=== PATIENT | male | born 1960 | race Caucasian/White ===

== ENCOUNTER → 2017-04-18 | Outpatient (REF) | payer OTHER ==
[2017-04-21 10:08] LABS: BENZODIAZEPINES, URINE SCREEN Negative ng/mL (Cutoff=200); METHADONE, URINE SCREEN Negative ng/mL (Cutoff=300); pH, URINE 5.5 (4.5-8.9)
== END ==
LOC: M SFHCLACO 11:49
PROVIDERS: ATTEND Physician Assistant
DX: F11.90 Opioid use, unspecified, uncomplicated (principal)

== ENCOUNTER → 2017-07-25 | Outpatient (REF) | payer OTHER ==
[2017-07-27 00:06] LABS: Lyme Disease IgG/IgM Antibodie <0.91 ISR (0.00-0.90); Lyme Disease IgM Ab Quantitati <0.80 index (0.00-0.79)
== END ==
LOC: M SFHCADAM 10:33
PROVIDERS: ATTEND Family Medicine
DX: M25.50 Pain in unspecified joint (principal)

== ENCOUNTER → 2017-10-16 | Outpatient (CLI) | payer OTHER ==
--- NOTE | 2017-11-07 00:14 | ECWPNPC ---
PATIENT NAME: SANTIAGO LEAHY : 1960 GENDER: MALE VISIT DATE: 10/16/2017 DISCHARGE DATE: 10/16/17 1533 VISIT LOCKED DATE TIME: PHYSICIAN: OPAL DAI RESOURCE: OPAL DAI REASON FOR APPOINTMENT 1. LOW BACK PAIN HISTORY OF PRESENT ILLNESS FALL RISK SCREENING: SCREENING :NO FALLS IN THE PAST YEAR 57 YEAR OLD MALE PATIENT WITH HISTORY OF CHRONIC BACK PAIN. PATIENT DESCRIBES THE PAIN ACHING, BURNING, THROBBING, SHARP, STABBING, AND HAVING IT ALL THE TIME WITH A PAIN SCORE OF 8/10. PATIENT STATES THAT HIS PAIN STARTED ROUGHLY TWO AND HALF AGREES AGO AFTER HE HAD A FLARE UP FROM HIS CROHN'S DISEASE. PATIENT STATES THAT ANY TYPE OF ACTIVITY INCLUDING SITTING, STANDING, OR LAYING DOWN FOR ANY PERIOD OF TIME INCREASES THE PAIN IN THE PATIENT'S LOWER BACK. PATIENT DID HAVE TWO BACK SURGERIES IN 1989 AND 1991 AND STATES THAT THEY DID AID IN PAIN RELIEF UNTIL THE FLARE UP. PATIENT REPORTS TRYING NERVE BLOCKS MANY YEARS AGO THAT DID NOT AID IN RELIEF. CURRENTLY THE PATIENT IS USING OXYCODONE FOR THE PAIN RELIEF. PATIENT DENIES UNEXPLAINABLE WEIGHT LOSS, FEVER, CHILLS, NEW CHANGES ON HIS URINARY OR BOWEL CONTROL. PAIN SCREENING: PATIENT HAS A COMPLAINT OF ACUTE OR CHRONIC PAIN :YES CURRENT MEDICATIONS TAKING MULTIVITAMIN TAKING FISH OIL TAKING OXYCODONE HCL 5 MG TABLET 1 TABLET ORALLY TID (TAKE WITH PREVIOUS RX FOR MDD 3) TAKING HUMIRA EVER OTHER WEEK, DONE IN [place] NOT-TAKING ZYRTEC ALLERGY 10 MG TABLET 1 TABLET ORALLY ONCE A DAY NOT-TAKING TRAMADOL HCL 50 MG TABLET 1 TABLET NEEDED MDD 2 ORALLY EVERY 6 HRS NOT-TAKING AUGMENTIN 500-125 MG TABLET 1 TABLET ORALLY THREE TIMES DAILY NOT-TAKING HYDROXYZINE HCL 25 MG TABLET 1 TABLET NEEDED ORALLY QHS NOT-TAKING HEPATITIS A-HEP B RECOMB VAC 720-20 ELU-MCG/ML SUSPENSION BRING TO OFFICE FOR INJECTION BY NURSE INTRAMUSCULAR ONCE, REPEAT IN 1 MONTH AND THEN 5 MONTHS AFTER THAT MEDICATION LIST REVIEWED AND RECONCILED WITH THE PATIENT PAST MEDICAL HISTORY CROHN'S DISEASE CHRONIC LOW BACK PAIN SMOKER ALLERGIES SULFA (FOR ALLERGY USE ONLY): SWELLING IN EXTREMITIES: ALLERGY SURGICAL HISTORY RESECTION OF 8-10" OF SMALL INTESTINE PLUS ILEUM AND PART OF COLON DUE TO CROHN'S DISEASE 2009 AFTER INJURY -- LAMINECTOMY AND REMOVAL OF BONE FRAGMENTS, PER PATIENT 1991 LAMINECTOMY (LUMBAR) 1989 RECONSTRUCTION OF LEFT ELBOW 1981 REPAIR OF RUPTURED ACHILLES TENDON 1969' REPAIR OF EARS TO REVERSE HEARING LOSS 17 Y/O FAMILY HISTORY FATHER: 90 YRS, HEART ATTACK, STROKE, CANCER, DIAGNOSED WITH HEART DISEASE, STROKE MOTHER: 80 YRS, HEART ATTACK, DIABETES, CANCER, DIAGNOSED WITH DIABETES, HEART DISEASE 1 BROTHER(S) , 3 SISTER(S) . 6 SON(S) , 2 DAUGHTER(S) - HEALTHY. 1 SISTER WITH COPD, DM. SOCIAL HISTORY GENERAL: TOBACCO USE ARE YOU A:CURRENT SMOKER ARE YOU INTERESTED IN QUITTING?READY TO QUIT PREVIOUS QUIT ATTEMPTS?YES, WITHIN THE LAST 6 MONTHS. COUNSELED THE PATIENT ON TOBACCO USE, CESSATION [id number]/22/2017 HOW MANY CIGARETTES A DAY DO YOU SMOKE?6-10 HOW SOON AFTER YOU WAKE UP DO YOU SMOKE YOUR FIRST CIGARETTE?6-30 MIN HOW OFTEN DO YOU SMOKE CIGARETTES?EVERY DAY PATIENT COUNSELED ON THE DANGERS OF TOBACCO USE AND URGED TO QUIT:10/16/2017 SMOKING CESSATION INFORMATION GIVEN10/16/2017 DECLINED ARRANGEADVISED TO CALL [facility] TO[facility]AC[facility] CESSATION WORKING ON QUITTING THROUGH PRIMARY ASSIST (PHARMACOTHERAPY AND COUNSELING)DISCUSSED PATIENT CONCERNS RELATED TO QUITTING. ADDITIONAL FINDINGS: TOBACCO USERMODERATE CIGARETTE SMOKER (10-19 CIGS/DAY) VAPORNO E-CIGARETTENO LUNG CANCER SCREENING SMOKING STATUS:CURRENT SMOKER IS THE PATIENT BETWEEN THE AGE OF 56 AND 78?YES HAS THE PATIENT EVER BEEN DIAGNOSED WITH LUNG CANCER?NO PACK YEARS = NUMBER OF PACKS PER DAY SMOKED X NUMBER OF YEARS SMOKED:44 BMI CARE GOAL FOLLOW-UP BELOW NORMAL BMI FOLLOW-UPDIETARY EDUCATION FOR WEIGHT GAIN - AT GOAL ALCOHOL SCREENING DID YOU HAVE A DRINK CONTAINING ALCOHOL IN THE PAST YEAR?YES HOW OFTEN DID YOU HAVE A DRINK CONTAINING ALCOHOL IN THE PAST YEAR?FOUR OR MORE TIMES A WEEK (4 POINTS) HOW MANY DRINKS DID YOU HAVE ON A TYPICAL DAY WHEN YOU WERE DRINKING IN THE PAST YEAR?1 OR 2 (0 POINTS) HOW OFTEN DID YOU HAVE SIX OR MORE DRINKS ON ONE OCCASION IN THE PAST YEAR?NEVER (0 POINTS) POINTS4 INTERPRETATIONPOSITIVE RECREATIONAL DRUG USE DRUG USE?NO CAFFEINE CAFFEINE USE?YES HOW OFTEN AND HOW MUCH? 3 CUPS OF COFFEE A DAY SEXUAL HX HAD SEX IN THE LAST 12 MONTHS (VAGINAL, ORAL, OR ANAL)?YES HAVE YOU EVER HAD AN STD?NO WITHWOMEN ONLY USE PROTECTION?NO HIV / HEP-C SCREENING HIV TEST OFFERED TO PATIENT:YES DATE OFFERED:12/04/2016 TEST ACCEPTED:NO REASON:PATIENT DECLINED HEP-C TEST OFFERED TO PATIENT:YES DATE OFFERED:12/04/2016 TEST ACCEPTED:NO REASON:PATIENT DECLINED OCCUPATION: [employer]. DIET: REGULAR, HEALTHY WITH FRUITS AND VEGETABLES. EXERCISE: NO REGULAR EXERCISE. MARITAL STATUS: SINGLE. OTHERS AT HOME: NONE. PETS: NONE. EPISCOPALIAN NO ZOROASTRIAN BELIEFS THAT WOULD IMPACT HEALTH CARE. LANGUAGE CITIZEN OF [place]. EDUCATION HS. 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 NO TRAVEL OUTSIDE US. DOMESTIC VIOLENCE NONE. HOSPITALIZATION/MAJOR DIAGNOSTIC PROCEDURE SURGERIES ABOVE CROHN'S DISEASE REVIEW OF SYSTEMS REVIEWED BY: PROVIDER: OPAL DAI MD . CONSTITUTIONAL: ANY CHANGE IN YOUR MEDICAL CONDITION? YES RECENT EXACERBATION OF CROHN'S DISEASE . CHILLS NO . FEVER NO . INFECTION: DO YOU HAVE NEW INFECTIONS? NO . DO YOU HAVE HISTORY OF MRSA? NO . MUSCULOSKELETAL: ANY NEW PATTERNS OF PAIN OR NUMBNESS? NO . SYTEMIC LUPUS NO . GASTROENTEROLOGY: ANY NEW CHANGE IN BOWEL CONTROL? NO . BARRETTS ESOPHAGUS NO . CIRRHOSIS NO . HEPATITIS NO . LIVER FAILURE NO . ACID REFLUX NO . UNEXPLAINED WEIGHT LOSS NO . GENITOURINARY: ANY NEW CHANGE IN BLADDER CONTROL? NO . IS THERE A CHANCE YOU COULD BE ? NO . HEMATOLOGY/LYMPH: DO YOU TAKE ANY BLOOD THINNERS? (FOR EXAMPLE- COUMADIN, PLAVIX, AGGRENOX, PLATEL, PRADAXA, OR XARELTO) NO . WHEN WAS YOUR LAST DOSE? DATE: TIME: . LOW PLATELET COUNT NO . SICKLE CELL DISEASE NO . VON WILLIEBRANDS NO . FACTOR V LEIDEN NO . THALLASEMIA NO . ANEMIA NO . EASY BRUISING NO . NEUROLOGY: HAVE YOU FALLEN IN THE PAST 6 MONTHS? YES PT REPORTS HE HAS NEUROPATHY IN BOTH FEET/LEGS, SOMETIMES WILL STUMBLE AND FALL, DENIES ANY INJURIES FROM FALLS. . ANY NEW EXTREMITY NUMBNESS OR WEAKNESS? NO . HEAD INJURY NO . DEMENTIA NO . CEREBRAL PALSY NO . MULTIPLE SCLEROSIS NO . DIZZINESS NO . HEADACHE NO . STROKES NO . VERTIGO NO . CARDIOLOGY: DO YOU HAVE A PACEMAKER OR DEFIBRILLATOR? NO . ANGINA NO . HEART ATTACK NO . HEART SURGERY NO . CONGESTIVE HEART FAILURE/FLUID OVERLOAD NO . CHEST PAIN NO . HIGH BLOOD PRESSURE NO . IRREGULAR HEART BEAT NO . RESPIRATORY: HAVE YOU BEEN SICK IN THE PAST WEEK? YES PT REPORTS HE IS HAVING AN EXACERBATION OF HIS CROHN'S DISEASE THIS WEEK . FEVER NO . FLU LIKE SYMPTOMS? NO . CPAP NO . BYPAP NO . ASTHMA NO . EMPHYSEMA NO . CHRONIC LUNG DISEASES NO . SHORTNESS OF BREATH ON EXERTION NO . COUGH NO . SNORING NO . INTEGUMENTARY: DO YOU HAVE ANY RASHES OR OPEN SORES? NO . ALLERGIC/IMMUNO: ARE YOU ALLERGIC TO SHELLFISH OR IV DYE? NO . ANY NEW ALLERGIES? NO . PSYCHIATRIC: DO YOU HAVE THOUGHTS OF HURTING YOURSELF OR SOMEONE ELSE? NO . ARE YOU ABUSED, NEGLECTED, OR IN AN UNSAFE ENVIRONMENT? NO . ENDOCRINOLOGY: ARE YOU DIABETIC? NO . THYROID DISORDER NO . OTHER: DO YOU NEED ANY PRESCRIPTIONS? YES . IF YES, PLEASE LIST: ____OXYCODONE 5MG, STATES PRIMARY WOULD LIKE PAIN MANAGEMENT TO TAKE OVER PRESCRIBING PAIN MEDICATION. . ANY NEW PROBLEMS WITH YOUR MEDICATIONS? NO . WHEN DID YOU LAST EAT? ____ . WHEN DID YOU LAST DRINK? ____ . WHAT DID YOU LAST DRINK? ____ . NAME OF PERSON DRIVING YOU HOME? ____ . DO YOU HAVE ANY OTHER QUESTIONS OR CONCERNS NO . VITAL SIGNS WT 150 LBS, HT 68.5 IN, BMI 22.47 INDEX, BP 138/76 MM HG, HR 76 /MIN, RR 18 /MIN, TEMP 98.5 F, OXYGEN SAT % 96%, NA INITIALS AW 1338. EXAMINATION : PATIENT IS ALERT O X 3 AND COOPERATIVE. TENDERNESS IN THE LOWER BACK AND PARASPINAL MUSCLE GROUP. ANTALGIC GAIT. LIMPING FROM THE LEG. PATIENT ABLE TO FLEX 40 DEGREES AND UNABLE TO EXTEND DUE TO PAIN. BOTH LEGS POSITIVE FOR PAIN AT STRAIGHT LEG RAISES. BOTH LEGS ARE WEAK. DIFFICULTIES GETTING TO THE SITTING POSITION. MRI OF HE LUMBAR SPINE DONE ON 08/02/16 SHOWS A DISC BULGE AT L3-L4 THROUGH L5-S1 WITH FACET DEGENERATIVE CHANGES. TENDERNESS IN THE CERVICAL AREA AND PARASPINAL MUSCLE GROUP. PATIENT ABLE TO FLEX THE NEXT 4- DEGREES AND 15 DEGREES LEFT AND RIGHT WITH LATERAL ROTATION. UPPER EXTREMEITIES VERY WEAK. LUNGS CLEAR, TO AUSCULTATION. NO MURMURS OR GALLOPS; FACIAL CRANIAL NERVES ARE GROSSLY NORMAL. GOOD SYMMETRY OF FACIAL MUSCLE MOVEMENT. NORMAL VISUAL SIGALA. ABDOMINAL SOFT AND DEPRESSIBLE. ASSESSMENTS POSTLAMINECTOMY SYNDROME, NOT ELSEWHERE CLASSIFIED - M96.1 (PRIMARY) CERVICALGIA - M54.2 INTERVERTEBRAL DISC DISORDER WITH RADICULOPATHY OF LUMBAR REGION - M51.16 MYALGIA - M79.1 TREATMENT POSTLAMINECTOMY SYNDROME, NOT ELSEWHERE CLASSIFIED NOTES: WE DISCUSSED SEVERAL ISSUES WITH MR. LEAHY'S PAIN MANAGEMENT CASE. AT THIS TIME THE PATIENT WILL CONTINUE WITH THE SAME MEDICATION REGIME BEFORE. DUE TO THE SEVERE PAIN THROUGHOUT THE BACK I WOULD LIKE THE PATIENT TO SEE A VOCATIONAL EVALUATOR. PATIENT WILL ALSO RECEIVE A CERVICAL X-RAY SO I MAY BETTER ASSESS THE PATIENT AND WHETHER PAIN IS LOCATED I WOULD LIKE TO SPEAK WITH THE PATIENT'S PRIMARY CARE TO DISCUSS MEDICATION MANAGEMENT. PATIENT IS AWARE WE WILL NOT PRESCRIBE MEDICATIONS UNTIL WE HAVE SPOKEN WITH HIS PRIMARY CARE. I WOULD ALSO LIKE THE PATIENT TO START PHYSICAL THERAPY TO SEE IF IT WILL AID IN RANGE OF MOTION WELL FUNCTIONALITY AND MOBILITY. INSTRUCTIONS WERE GIVEN, QUESTIONS WERE ANSWERED, PATIENT REPORTS UNDERSTANDING AND AGREES WITH THE PLAN. I, BARBRA GIPSON, DOCUMENTED THE ABOVE INFORMATION ACTING A SCRIBE FOR DR. DAI. I HAVE REVIEWED THE ABOVE DOCUMENT, WRITTEN BY BARBRA ARMENTA AND I VERIFY THAT IT IS ACCURATE. DEAR DR. ROSS:THANK YOU FOR YOUR KIND REFERRAL OF MR. LEAHY. IF YOU WANT TO DISCUSS HIS CASE WITH ME PLEASE CALL ME AT THE PAIN CENTER AT [phone]. SINCERELY,OPAL DAI, [facility]. PROCEDURE CODES FA211 ESTABILISHED PATIENT [facility] CHARGE G8427 DOC MEDS VERIFIED W/PT OR RE G8730 PAIN ASSESS POS TOOL F/U PLAN DOC DISPOSITION & COMMUNICATION FOLLOW UP 2 WEEKS ELECTRONICALLY SIGNED BY OPAL DAI MD ON 11/05/2017 AT 08:58 PM EST DISCLAIMER : THIS IS A VISIT SUMMARY EXTRACTED FROM THE [employer] CHART. IT IS NOT A COPY OF THE [employer] PROGRESS NOTE. MTDD
== END ==
LOC: M PAIN 13:00
PROVIDERS: ATTEND Anesthesiology
DX: M96.1 Postlaminectomy syndrome, not elsewhere classified (principal); M54.2 Cervicalgia; M51.16 Intervertebral disc disorders with radiculopathy, lumbar region; M79.1 Myalgia; M54.5 Low back pain; G89.29 Other chronic pain; K50.90 Crohn's disease, unspecified, without complications; F17.210 Nicotine dependence, cigarettes, uncomplicated; Z79.891 Long term (current) use of opiate analgesic; Z79.899 Other long term (current) drug therapy; Z88.2 Allergy status to sulfonamides

== ENCOUNTER → 2018-09-10 | Outpatient (REF) | payer OTHER ==
[2018-09-10 20:46] LABS: HEMATOCRIT 49.1 % (42.0-52.0); HEMOGLOBIN 16.2 g/dl (13.5-17.5); MEAN CORPUSCULAR HEMOGLOBIN 31.3 pg (27.0-33.0); PLATELET COUNT, AUTOMATED 193 10^3/uL (150-450); RED BLOOD COUNT 5.17 10^6/uL (4.30-6.10); RED CELL DISTRIBUTION WIDTH 13.6 % (11.5-14.5); WHITE BLOOD COUNT 17.3 10^3/uL (4.0-10.0)
[2018-09-10 21:06] LABS: ALBUMIN 3.6 GM/DL (3.2-5.2); ALBUMIN/GLOBULIN RATIO 1.29 (1.00-1.93); ALKALINE PHOSPHATASE 75 U/L (45-117); ALT/SGPT 40 U/L (12-78); ANION GAP 7 MEQ/L (8-16); AST/SGOT 16 U/L (7-37); BILIRUBIN,TOTAL 0.3 MG/DL (0.2-1.0); BLOOD UREA NITROGEN 30 MG/DL (7-18); C REACTIVE PROTEIN QUANTITATIV < 0.30 MG/DL (0.00-0.30); CALCIUM LEVEL 8.9 MG/DL (8.5-10.1); CARBON DIOXIDE LEVEL 26 MEQ/L (21-32); CHLORIDE LEVEL 107 MEQ/L (98-107); CREATININE FOR GFR 0.99 MG/DL (0.70-1.30); FERRITIN 97 NG/ML (26-388); GLOMERULAR FILTRATION RATE > 60.0 (>56); GLUCOSE, FASTING 86 MG/DL (70-100); IRON (FE) 105 UG/DL (65-175); PERCENT SATURATION 32.3 % (19.7-50.0); POTASSIUM SERUM 4.6 MEQ/L (3.5-5.1); SODIUM LEVEL 140 MEQ/L (136-145); TOTAL 25(OH) VITAMIN D 34.5 NG/ML (30.0-100.0); TOTAL IRON BINDING CAPACITY 325 UG/DL (250-450); TOTAL PROTEIN 6.4 GM/DL (6.4-8.2)
[2018-09-10 21:16] LABS: ERYTHROCYTE SEDIMENTATION RATE 3 mm/hr (0-20)
[2018-09-17 00:11] LABS: ADALIMUMAB LEVEL 2.6 ug/mL (.); ANTI-ADALIMUMAB ABY <25 ng/mL (.)
== END ==
LOC: M LABDRWAD 20:31
DX: K50.10 Crohn's disease of large intestine without complications (principal); K50.00 Crohn's disease of small intestine without complications; K62.89 Other specified diseases of anus and rectum; F11.20 Opioid dependence, uncomplicated; F17.200 Nicotine dependence, unspecified, uncomplicated
CPT/HCPCS: 83550

== ENCOUNTER → 2018-09-10 | Outpatient (REF) | payer OTHER ==
[2018-09-10 20:26] LABS: BASO % 0.2 % (0.0-1.0); EOS % 0.1 % (0.0-3.0); HEMATOCRIT 47.6 % (42.0-52.0); HEMOGLOBIN 15.3 g/dl (13.5-17.5); IMMATURE GRANULOCYTE % 0.5 % (0-3.0); LYMPH % 5.9 % (24.0-44.0); MEAN CORPUSCULAR HEMOGLOBIN 31.1 pg (27.0-33.0); MEAN CORPUSCULAR HGB CONC 32.1 g/dl (32.0-36.5); MEAN CORPUSCULAR VOLUME 96.7 fl (80.0-96.0); MONO # 0.4 10^3/uL (0.0-0.8); MONO % 2.4 % (0.0-5.0); NEUTROPHILS # 15.7 10^3/uL (1.8-7.7); NEUTROPHILS % 90.9 % (36.0-66.0); PLATELET COUNT, AUTOMATED 210 10^3/uL (150-450); RED BLOOD COUNT 4.92 10^6/uL (4.30-6.10); RED CELL DISTRIBUTION WIDTH 13.6 % (11.5-14.5); WHITE BLOOD COUNT 17.3 10^3/uL (4.0-10.0)
[2018-09-10 21:06] LABS: ALBUMIN 3.7 GM/DL (3.2-5.2); ALBUMIN/GLOBULIN RATIO 1.28 (1.00-1.93); ALKALINE PHOSPHATASE 78 U/L (45-117); ALT/SGPT 38 U/L (12-78); ANION GAP 8 MEQ/L (8-16); AST/SGOT 17 U/L (7-37); BILIRUBIN,TOTAL 0.3 MG/DL (0.2-1.0); BLOOD UREA NITROGEN 29 MG/DL (7-18); CARBON DIOXIDE LEVEL 26 MEQ/L (21-32); CHLORIDE LEVEL 107 MEQ/L (98-107); CREATININE FOR GFR 0.97 MG/DL (0.70-1.30); GLOMERULAR FILTRATION RATE > 60.0 (>56); GLUCOSE, FASTING 88 MG/DL (70-100); POTASSIUM SERUM 4.6 MEQ/L (3.5-5.1); SODIUM LEVEL 141 MEQ/L (136-145); THYROID STIMULATING HORMONE 0.637 uIU/ML (0.358-3.740); TOTAL PROTEIN 6.6 GM/DL (6.4-8.2)
== END ==
LOC: M SFHCADAM 16:03
DX: R53.81 Other malaise (principal)
CPT/HCPCS: 84443

== ENCOUNTER → 2018-11-12 | Outpatient (CLI) | payer OTHER ==
--- NOTE | 2018-11-12 19:24 | REP ---
Clinical: Neck mass. Technique: AP and lateral soft tissue neck radiographs. Findings: Osseous structures demonstrate advanced multilevel degenerative disc osteophyte complexes. The airway is patent and normal / midline. The surrounding soft tissues are grossly unremarkable. There is a 1 cm calcification in the right submandibular region. Impression: 1. Advanced multilevel degenerative changes. 2. 1 cm calcification in the soft tissues of the right submandibular region. Electronically Signed by Gaurang Jain MD 11/12/2018 07:16 P
== END ==
LOC: M ADAMS 08:51
PROVIDERS: ATTEND Family Medicine
DX: R22.1 Localized swelling, mass and lump, neck (principal)

== ENCOUNTER → 2019-03-09 | Outpatient (REF) | payer OTHER ==
[2019-03-09 21:06] LABS: ALBUMIN 3.5 GM/DL (3.2-5.2); ALT/SGPT 31 U/L (12-78); BILIRUBIN,TOTAL 0.3 MG/DL (0.2-1.0); BLOOD UREA NITROGEN 26 MG/DL (7-18); CALCIUM LEVEL 9.1 MG/DL (8.5-10.1); CARBON DIOXIDE LEVEL 26 MEQ/L (21-32); CHLORIDE LEVEL 109 MEQ/L (98-107); CREATININE FOR GFR 0.87 MG/DL (0.70-1.30); FREE T4 0.97 NG/DL (0.76-1.46); GLOMERULAR FILTRATION RATE > 60.0 (>56); GLUCOSE, FASTING 118 MG/DL (70-100); POTASSIUM SERUM 4.3 MEQ/L (3.5-5.1); SODIUM LEVEL 141 MEQ/L (136-145); THYROID STIMULATING HORMONE 0.672 uIU/ML (0.358-3.740); TOTAL PROTEIN 6.5 GM/DL (6.4-8.2)
== END ==
LOC: M SFHCADAM 17:32
PROVIDERS: ATTEND Family Medicine
DX: R22.0 Localized swelling, mass and lump, head (principal); F32.9 Major depressive disorder, single episode, unspecified

== ENCOUNTER → 2019-03-09 | Outpatient (CLI) | payer OTHER ==
[2019-03-09 20:37] LABS: HEMATOCRIT 47.5 % (42.0-52.0); HEMOGLOBIN 15.5 g/dl (13.5-17.5); MEAN CORPUSCULAR HEMOGLOBIN 30.9 pg (27.0-33.0); MEAN CORPUSCULAR HGB CONC 32.6 g/dl (32.0-36.5); MEAN CORPUSCULAR VOLUME 94.6 fl (80.0-96.0); PLATELET COUNT, AUTOMATED 253 10^3/uL (150-450); RED BLOOD COUNT 5.02 10^6/uL (4.30-6.10); WHITE BLOOD COUNT 11.6 10^3/uL (4.0-10.0)
[2019-03-09 20:56] LABS: ALBUMIN 3.5 GM/DL (3.2-5.2); ALT/SGPT 32 U/L (12-78); BILIRUBIN,DIRECT < 0.1 MG/DL (0.0-0.2); BILIRUBIN,TOTAL 0.3 MG/DL (0.2-1.0); BLOOD UREA NITROGEN 27 MG/DL (7-18); C REACTIVE PROTEIN QUANTITATIV 0.39 MG/DL (0.00-0.30); CALCIUM LEVEL 9.2 MG/DL (8.5-10.1); CARBON DIOXIDE LEVEL 25 MEQ/L (21-32); CHLORIDE LEVEL 109 MEQ/L (98-107); CREATININE FOR GFR 0.85 MG/DL (0.70-1.30); GLOMERULAR FILTRATION RATE > 60.0 (>56); GLUCOSE, FASTING 120 MG/DL (70-100); POTASSIUM SERUM 4.3 MEQ/L (3.5-5.1); SODIUM LEVEL 141 MEQ/L (136-145); TOTAL PROTEIN 6.3 GM/DL (6.4-8.2)
[2019-03-09 21:12] LABS: ERYTHROCYTE SEDIMENTATION RATE 5 mm/hr (0-20)
== END ==
LOC: M LABDRWAD 17:37
PROVIDERS: ATTEND Physician Assistant Surgical
DX: K50.00 Crohn's disease of small intestine without complications (principal); K50.10 Crohn's disease of large intestine without complications; F17.200 Nicotine dependence, unspecified, uncomplicated; K92.1 Melena

== ENCOUNTER 2019-12-03 17:15 | Inpatient (IN) | payer OTHER ==
[~2019-12-03] VITALS: Ht 175.3 cm; Wt 54.1 kg
[2019-12-03] MEDS ORDERED: LR10IV IV (17:40)
[2019-12-03] MEDS ORDERED: TPNINJ3 IV (17:40)
[2019-12-03] MEDS ORDERED: ANTI2TAB16 (17:40)
[2019-12-03] MEDS ORDERED: PRED10TA2 (17:40)
[2019-12-03] MEDS ORDERED: OXYC5SOL11 (17:40)
[2019-12-03] MEDS ORDERED: NS 1,000 ML IV ONE ×3 (18:00→20:45)
[2019-12-03 18:31] LABS: VENOUS BASE EXCESS 7.6 (-2.0-2.0); VENOUS HCO3 31.5 MEQ/L (23.0-27.0); VENOUS O2 SATURATION 93.8 % (60.0-80.0); VENOUS PARTIAL PRESSURE CO2 41.3 mmHg (38.0-50.0); VENOUS PARTIAL PRESSURE O2 65.2 mmHg (30.0-50.0); VENOUS STANDARD HCO3 31.4 MEQ/L; VENOUS TOTAL CO2 32.8 MEQ/L (24.0-28.0)
--- NOTE | 2019-12-03 18:31 | REP ---
Portable chest x-ray: Two views. History: Dyspnea. Cough. No comparison views. Findings: A left-sided PICC line is seen in place with its tip in the expected location of the SVC. The lungs are well inflated and clear. The pleural angles are sharp. Heart is not enlarged. No infiltrate is seen. Pulmonary vasculature is not increased. There are several old healed rib fractures on the left. Impression: No active disease. Electronically Signed by Oscar Sumner MD 12/03/2019 06:22 P
[2019-12-03 18:34] LABS: HEMATOCRIT 34.5 % (42.0-52.0); HEMOGLOBIN 11.4 g/dl (13.5-17.5); MEAN CORPUSCULAR HEMOGLOBIN 31.6 pg (27.0-33.0); MEAN CORPUSCULAR VOLUME 95.6 fl (80.0-96.0); RED BLOOD COUNT 3.61 10^6/uL (4.30-6.10); WHITE BLOOD COUNT 8.1 10^3/uL (4.0-10.0)
[2019-12-03 18:44] LABS: INR 0.96; PROTHROMBIN TIME 12.5 SECONDS (11.8-14.0)
[2019-12-03 19:05] LABS: PLATELET COUNT, AUTOMATED 68 10^3/uL (150-450)
[2019-12-03 19:12] LABS: ALBUMIN 2.4 GM/DL (3.2-5.2); ALT/SGPT 148 U/L (12-78); BILIRUBIN,DIRECT 2.5 MG/DL (0.0-0.2); BILIRUBIN,TOTAL 3.9 MG/DL (0.2-1.0); BLOOD UREA NITROGEN 38 MG/DL (7-18); CARBON DIOXIDE LEVEL 32 MEQ/L (21-32); CHLORIDE LEVEL 96 MEQ/L (98-107); CK-MB VALUE MASS < 1.0 NG/ML (<3.6); CPK CREATINE PHOSPHOKINASE 54 U/L (39-308); CREATININE FOR GFR 0.99 MG/DL (0.70-1.30); GLOMERULAR FILTRATION RATE > 60.0 (>56); GLUCOSE, FASTING 121 MG/DL (70-100); MB/CK RELATIVE INDEX 1.85 (< OR =4); NT-PRO BNP 86 PG/ML (<125); POTASSIUM SERUM 3.9 MEQ/L (3.5-5.1); SODIUM LEVEL 136 MEQ/L (136-145); THYROID STIMULATING HORMONE 0.119 uIU/ML (0.358-3.740); TOTAL PROTEIN 5.7 GM/DL (6.4-8.2); TROPONIN I < 0.02 NG/ML (< 0.10)
[2019-12-03 19:15] LABS: BASOPHILS 1 % (0-1); LYMPHOCYTES 4 % (16-44); MONOCYTES 3 % (0-5); NEUTROPHILS 84 % (28-66); PLATELET ESTIMATE DECREASED (NORMAL)
--- NOTE | 2019-12-03 19:40 | ECGEPIP ---
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
[2019-12-03] MEDS ORDERED: ONDANSETRON 4MG/2ML VIAL (J2405) IV ONE (20:15)
[2019-12-03] MEDS ORDERED: ISOVUE-370 76% 100ML VIAL (Q9967) As Ordered ONE (20:49)
--- NOTE | 2019-12-03 21:52 | REPVR ---
PROCEDURE INFORMATION: Exam: CT Abdomen And Pelvis With Contrast Exam date and time: 12/03/2019 9:09 PM Age: 59 years old Clinical indication: Abdominal pain; Generalized TECHNIQUE: Imaging protocol: Computed tomography of the abdomen and pelvis with intravenous contrast. Radiation optimization: All CT scans at this facility use at least one of these dose optimization techniques: automated exposure control; mA and/or kV adjustment per patient size (includes targeted exams where dose is matched to clinical indication); or iterative reconstruction. Contrast material: ISOVUE 370; Contrast volume: 100 ml; Contrast route: IV; COMPARISON: No relevant prior studies available. FINDINGS: Lungs: Bibasilar atelectasis. Liver: Prominent hepatic arteries with peripheral corkscrewing, findings which can be associated with cirrhosis. Subcentimeter hypodensity in the left lobe of the liver not characterized on this examination. Gallbladder and bile ducts: The gallbladder is incompletely distended. This is most likely related to incomplete fasting. Clinical correlation to exclude gallbladder pathology suggested. Dilated mid common bile duct measures 14 mm tapering at the ampullary. There is no significant intrahepatic biliary dilatation. Findings should be correlated with biliary chemistries. Pancreas: Normal. No ductal dilation. Spleen: Borderline splenomegaly. Mottled enhancement likely related to phase of enhancement. Adrenals: There is bilateral adrenal hyperplasia. Kidneys and ureters: Normal. No hydronephrosis. Stomach and bowel: Status post right hemicolectomy. Right-sided ostomy demonstrated. Boggy appearance of the distal transverse and left colon may indicate the presence of colitis. Appendix: No evidence of appendicitis. Intraperitoneal space: Unremarkable. No free air. No significant fluid collection. Vasculature: The aorta demonstrates mild atherosclerotic calcification. Lymph nodes: Unremarkable. No enlarged lymph nodes. Bladder: Unremarkable as visualized. Reproductive: The prostate gland demonstrates moderate hyperplasia. Bones/joints: Moderate central spinal stenosis at L2-L3, L3-L4, severe central spinal stenosis at L4-L5. Possible right posterior disc protrusion at L5-S1 which may impinge on the right S1 nerve root although further evaluation with lumbar MRI suggested if clinically indicated. Soft tissues: Unremarkable. IMPRESSION: 1. Moderate central spinal stenosis at L2-L3, L3-L4, severe central spinal stenosis at L4-L5. Possible right posterior disc protrusion at L5-S1 which may impinge on the right S1 nerve root although further evaluation with lumbar MRI suggested if clinically indicated. 2. The gallbladder is incompletely distended. This is most likely related to incomplete fasting. Clinical correlation to exclude gallbladder pathology suggested. 3. Prominent hepatic arteries with peripheral corkscrewing, findings which can be associated with cirrhosis. 4. There is bilateral adrenal hyperplasia. 5. Dilated mid common bile duct measures 14 mm tapering at the ampullary. There is no significant intrahepatic biliary dilatation. Findings should be correlated with biliary chemistries. 6. Boggy appearance of the distal transverse and left colon may indicate the presence of colitis. 7. Moderate prostatic hyperplasia. Electronically signed by: Jesús Doherty On 12/03/2019 21:52:13 PM
--- NOTE | 2019-12-03 21:57 | REPVR ---
PROCEDURE INFORMATION: Exam: CT Angiography Chest With Contrast Exam date and time: 12/03/2019 9:09 PM Age: 59 years old Clinical indication: Shortness of breath; Additional info: Shortness of breath, recent surgery TECHNIQUE: Imaging protocol: Computed tomographic angiography of the chest with intravenous contrast. 3D rendering: MIP and/or 3D reconstructed images were created by the technologist. Radiation optimization: All CT scans at this facility use at least one of these dose optimization techniques: automated exposure control; mA and/or kV adjustment per patient size (includes targeted exams where dose is matched to clinical indication); or iterative reconstruction. Contrast material: ISOVUE 370; Contrast volume: 100 ml; Contrast route: IV; COMPARISON: CR PORTABLE CHEST X-RAY 12/03/2019 5:48 PM FINDINGS: Pulmonary arteries: Normal. No pulmonary emboli. Aorta: There is no aortic dissection or aneurysm. Lungs: Mild paraseptal emphysema most pronounced in the anterior mid and upper lung zones bilaterally with scattered blebs in the lower lobes. Well expanded lungs consistent with COPD. Pleural space: Unremarkable. No pneumothorax. No pleural effusion. Heart: Unremarkable. No cardiomegaly. No pericardial effusion. Lymph nodes: Unremarkable. No enlarged lymph nodes. Bones/joints: Unremarkable. No acute fracture. Soft tissues: Unremarkable. IMPRESSION: 1. Mild paraseptal emphysema most pronounced in the anterior mid and upper lung zones bilaterally with scattered blebs in the lower lobes. 2. There is no aortic dissection or aneurysm. 3. COPD. Electronically signed by: Jesús Doherty On 12/03/2019 21:56:55 PM
[2019-12-03] MEDS ORDERED: PIPERACILLIN/TAZOBACTAM SOD 3.375 GM in D5W MINI-BAG PLUS 50 ML IV ONE (23:45)
[2019-12-04] VITALS (39 sets, daily range): BP systolic 68–110; BP diastolic 40–74
--- NOTE | 2019-12-04 00:50 | HPEPDOC ---
[facility] Medical History & Physical Date of Admission Dec 04, 2019 Date of Service: Dec 04, 2019 Primary Care Physician: NILSA ROSS DO Attending Physician: Ben Smith MD History and Physical TIME OF SERVICE: 2:30 AM CHIEF COMPLAINT: Fever HISTORY OF PRESENT ILLNESS: This is a 59-year-old male who presents with complaints of fevers for 2 days associated with chills and one episode of emesis. He denies having abdominal pain or any change in the output from his stoma. He denies having skin ulcers or any changes in his chronic neck and back pain. He had a fall a few days ago and hit his eye. He thinks this may been due to a combination of low blood pressure due to to dehydration, and his pain meds; initially he had blurry vision in his left eye after the fall, but this has resolved. He admits to losing a lot of weight recently. REVIEW OF SYSTEMS: 12 point review of systems negative except as listed in HPI PAST MEDICAL/ SURGICAL HISTORY: Crohn's disease status post resection of the small intestine ileum and hard of the colon on TPN Status post lumbar laminectomy. Status post reconstruction of left elbow. Status post repair of ruptured Achilles tendon SOCIAL HISTORY: Former smoker. Uses medical marijuana FAMILY HISTORY: CAD Cancer COPD Diabetes ALLERGIES: Please see below. HOME MEDICATIONS: Please see below. PHYSICAL EXAMINATION: VITAL SIGNS: Please see below. GEN: Slim build/ well developed INTEGUMENT: Has multiple tattoos/appears jaundice HEENT: NCAT /mucus membranes dry/ the left eye has marked conjunctival injection CVS: RRR/NMRG/ no lower extremity edema LUNGS: lungs are clear to auscultation bilaterally on room air ABDOMEN: Has a colostomy with green output in the bag MSK/EXTREMITIES: range of motion intact in all 4 extremities NEURO: CN 2-12 are grossly intact / speech is not dysarthric PSYCH: alert and oriented to person place and time/ able to understand and follow all commands LABORATORY DATA: See below. IMAGING: Chest x-ray unremarkable. CT of the chest " IMPRESSION: 1. Mild paraseptal emphysema most pronounced in the anterior mid and upper lung zones bilaterally with scattered blebs in the lower lobes. 2. There is no aortic dissection or aneurysm. 3. COPD. " CT of the abdomen and pelvis " IMPRESSION: 1. Moderate central spinal stenosis at L2-L3, L3-L4, severe central spinal stenosis at L4-L5. Possible right posterior disc protrusion at L5-S1 which may impinge on the right S1 nerve root although further evaluation with lumbar MRI suggested if clinically indicated. 2. The gallbladder is incompletely distended. This is most likely related to incomplete fasting. Clinical correlation to exclude gallbladder pathology suggested. 3. Prominent hepatic arteries with peripheral corkscrewing, findings which can be associated with cirrhosis. 4. There is bilateral adrenal hyperplasia. 5. Dilated mid common bile duct measures 14 mm tapering at the ampullary. There is no significant intrahepatic biliary dilatation. Findings should be correlated with biliary chemistries. 6. Boggy appearance of the distal transverse and left colon may indicate the presence of colitis. 7. Moderate prostatic hyperplasia. MICROBIOLOGY: Please see below. ASSESSMENT: Mr. Aly is a 59-year-old with with a past medical history of Crohn's colitis & multiple back surgeries, who is admitted for evaluation of transaminitis and management of hypotension & acute Crohn's. PLAN: 1. Hypotension Possibly due to infection versus adrenal insufficiency Despite receiving 2 L of IV fluids. The patient's blood pressure remained low CT of abdomen showed bilateral adrenal hyperplasia Plan: Admit to ICU/continue with IV fluids/follow-up cortisol stim test (will not order AM cortisol test bc the AM labs are drawn before 8AM) / he will be started on steroids for Crohn's colitis 2. Transaminitis, possibly due to sclerosing cholangitis Alternatively, he may have ascending cholangitis or another process who's cause is TBD He has a history of Crohn's, which predisposes him to sclerosing cholangitis He is also complaining of fever, chills, has lost weight and has jaundice. His LFTs are elevated. CT of abdomen shows dilated CBD and possible liver cirrhosis Plan: Nothing by mouth/IV fluids/continue Zosyn/GI and Gen Surgery consults / follow-up ERCP 3. Crohn's Colitis He had colon and small bowel resection and is now on TPN CT showed evidence of colitis. Plan: f/u w GI / switch from PO to IV steroids 4. Protein calorie malnutrition. His BMI 17.9. Plan: Follow-up prealbumin/dietitian consult to recalibrate his TPN 5 Chronic lower back pain Plan: Morphine when necessary/per CT recommendations the daytime team may consider MRI of the spine DVT PROPHYLAXIS: SCDs pending confirmation that he does need surgery DISPOSITION: Likely home after more than 2 midnight's stay Vital Signs Vital Signs Date Time Temp Pulse Resp B/P (MAP) Pulse Ox O2 Delivery O2 Flow Rate FiO2 12/04/19 00:09 75 98 12/04/19 00:03 17 96/63 (74) 12/03/19 22:39 97.5 Room Air Laboratory Data Labs 24H Laboratory Tests 2 12/03/19 18:20: Nucleated Red Blood Cells % (auto) 0.0, Neutrophils 84H, Band Neutrophils 8, Lymphocytes (Manual) 4L, Monocytes (Manual) 3, Basophils (Manual) 1, Red Blood Cell Morphology NORMAL, Platelet Estimate DECREASED, Immature Platelet Fraction 5.5, Prothrombin Time 12.5, Prothromb Time International Ratio 0.96, Blood Gas Bicarbonate Standard 31.4, Venous Blood pH 7.500H, Venous Blood Partial Pressure CO2 41.3, Venous Blood Partial Pressure O2 65.2H, Venous Blood Total Carbon Diox jace 32.8H, Venous Blood HCO3 31.5H, Venous Blood Oxygen Saturation 93.8H, Venous Blood Base Excess 7.6H, Anion Gap 8, Glomerular Filtration Rate > 60.0, Lactic Acid Level 1.5, Calcium Level 9.0, Total Bilirubin 3.9H, Direct Bilirubin 2.5H, Aspartate Amino Transf (AST/SGOT) 72H, Alanine Aminotransferase (ALT/SGPT) 148H, Alkaline Phosphatase 162H, Total Creatine Kinase 54, Creatine Kinase MB < 1.0, Creatine Kinase MB Relative Index 1.85, Troponin I < 0.02, ZP-Jfo-O-Type Natriuretic Peptide 86, Total Protein 5.7L, Albumin 2.4L, Albumin/Globulin Ratio 0.73L, Thyroid Stimulating Hormone (TSH) 0.119L 12/03/19 21:50: Urine Color ROSEY, Urine Appearance CLEAR, Urine pH 7.0, Urine Specific [place] 1.021, Urine Protein 2+H, Urine Glucose (UA) NEGATIVE, Urine Ketones NEGATIVE, Urine Blood NEGATIVE, Urine Nitrite NEGATIVE, Urine Bilirubin 1+H, Urine Urobilinogen 2.0H, Urine Leukocyte Esterase NEGATIVE, Urine WBC (Auto) 1, Urine RBC (Auto) 3, Urine Hyaline Casts (Auto) 0, Urine Bacteria (Auto) NEGATIVE, Urine Squamous Epithelial Cells 0, Urine Mucus (Auto) SMALL, Urine Sperm (Auto) CBC/BMP Laboratory Tests 12/03/19 18:20 Microbiology Microbiology 12/03/19 Blood Culture, Received Pending 12/03/19 Respiratory Virus Panel (PCR) ([facility]) - Final, Complete 12/03/19 Blood Culture, Received Pending Home Medications Scheduled Lactated Ringer's (Lactated Ringers) 1,000 Ml Iv.soln, 1,000 ML IV Q6H Prednisone (Prednisone) 10 Mg Tablet, 10 MG PO DAILY Sodium/Pot/Mag/Calc/Chlor/Acet (TPN Electrolytes Vial) 20 Ml Vial, 1 DOSE IV QPM GIVEN AT 1800. RUNS THROUGHOUT THE NIGHT. Scheduled PRN Loperamide HCl (Anti-Diarrheal) 2 Mg Tablet, 2 MG PO QID PRN for DIARRHEA Oxycodone HCl (Oxycodone HCl) 5 Mg/5 Ml Solution, 5 MG PO Q6H PRN for PAIN Allergies Coded Allergies: Sulfa (Sulfonamide Antibiotics) (Verified Allergy, Intermediate, swelling of extremities, 12/03/19) A-FIB/CHADSVASC A-FIB History Current/History of A-Fib/PAF?: No Current PO Anticoag Therapy: No EDOUARD DALE MD Dec 04, 2019 00:50
[2019-12-04] MEDS ORDERED: PRED10TA2 PO (01:14)
[2019-12-04] MEDS ORDERED: TPNINJ3 IV (01:14)
[2019-12-04] MEDS ORDERED: OXYC1SOL3 PO (01:14)
[2019-12-04] MEDS ORDERED: ANTI2TAB16 PO (01:14)
[2019-12-04] MEDS: NS 1,000 ML IV SCH ×2 (01:34→10:19)
[2019-12-04] MEDS: MORPHINE 4 MG/ML 1ML VIAL/SYRINGE (J2270) IV PRN ×3 (03:02→22:12)
[2019-12-04] MEDS ORDERED: COSYNTROPIN 0.25 MG/ML VIAL (J0834 PER 0.25MG) IV ONE (04:15)
[2019-12-04 05:31] LABS: BASO % 0.2 % (0.0-1.0); EOS % 0.4 % (0.0-3.0); HEMATOCRIT 34.2 % (42.0-52.0); HEMOGLOBIN 10.9 g/dl (13.5-17.5); LYMPH # 0.3 10^3/uL (1.5-5.0); LYMPH % 5.9 % (24.0-44.0); MEAN CORPUSCULAR HEMOGLOBIN 31.1 pg (27.0-33.0); MEAN CORPUSCULAR HGB CONC 31.9 g/dl (32.0-36.5); MEAN CORPUSCULAR VOLUME 97.7 fl (80.0-96.0); MONO # 0.5 10^3/uL (0.0-0.8); MONO % 8.7 % (0.0-5.0); NEUTROPHILS # 4.4 10^3/uL (1.5-8.5); NEUTROPHILS % 83.7 % (36.0-66.0); WHITE BLOOD COUNT 5.3 10^3/uL (4.0-10.0)
[2019-12-04 05:36] LABS: PLATELET COUNT, AUTOMATED 64 10^3/uL (150-450)
[2019-12-04 05:48] LABS: ALBUMIN 2.2 GM/DL (3.2-5.2); ALT/SGPT 122 U/L (12-78); BILIRUBIN,DIRECT 2.8 MG/DL (0.0-0.2); BILIRUBIN,TOTAL 3.4 MG/DL (0.2-1.0); BLOOD UREA NITROGEN 34 MG/DL (7-18); CALCIUM LEVEL 8.5 MG/DL (8.5-10.1); CARBON DIOXIDE LEVEL 30 MEQ/L (21-32); CHLORIDE LEVEL 104 MEQ/L (98-107); CREATININE FOR GFR 0.96 MG/DL (0.70-1.30); GLOMERULAR FILTRATION RATE > 60.0 (>56); GLUCOSE, FASTING 75 MG/DL (70-100); POTASSIUM SERUM 3.4 MEQ/L (3.5-5.1); PREALBUMIN 18.4 MG/DL (20.0-40.0); SODIUM LEVEL 140 MEQ/L (136-145)
[2019-12-04] MEDS ORDERED: methylPREDNISolone INJ 125 MG/2 ML VIAL (J2930) IV SCH (06:00)
[2019-12-04] MEDS ORDERED: LIDOCAINE 5% (LIDODERM) PATCH TD PRN (06:30)
[2019-12-04] MEDS ORDERED: ACETAMINOPHEN *IV* 1,000 MG in IV 1 EA IV ONE (06:30)
[2019-12-04] MEDS: PIPERACILLIN/TAZOBACTAM SOD 3.375 GM in D5W MINI-BAG PLUS 50 ML IV SCH ×3 (07:58→23:53)
[2019-12-04] MEDS ORDERED: predniSONE 10 MG TAB PO SCH (09:00)
[2019-12-04] MEDS ORDERED: NS 1,000 ML IV ONE ×2 (10:15→20:45)
[2019-12-04] MEDS ORDERED: HYDROCORTISONE 100 MG/2 ML VIAL (J1720 PER 1) IV ONE (11:30)
--- NOTE | 2019-12-04 12:34 | IPN ---
DATE: 12/04/2019 Jonathan is seen in intensive care unit (ICU). He is waiting for magnetic resonance cholangiopancreatography (MRCP). Admitted with suspected cholangitis. He had shaking chills at home and has elevated liver function test. He did not have an elevated white count but I suspected to have had some pancytopenia, so would approach the absolute level white count with some caution. There has been some discussion about whether the patient has cirrhosis. I do no see any diagnostic except on the CT on admission. His hepatic arteries had some peripheral corkscrewing which can be seen with cirrhosis. However, he underwent a recent laparoscopic procedure at [facility] and had Veronica Ochoa, MS IV diligently went through his operative report and there is no mention of cirrhosis on that. It did say subcentimeter hypodensity right hepatic lobe. So, I think we need to take a diagnosis of cirrhosis with some hesitation as well. His pressures have been soft. Usually systolic pressure is 100-120 and it has been 60-80 in the ICU but it responded to fluid boluses. PHYSICAL EXAM: 99/54, pulse 64, respiratory rate 21, maximum temperature (Tmax) of 101.4. General Appearance: He is lying in bed, resting comfortably. He is jaundiced. Lungs: Clear. Heart: Regular rhythm. Abdomen: Soft, mildly tender. No peripheral edema. LABS: White count is normal, 5.3. Hemoglobin 10.9, platelets 64. Sodium 140, potassium 3.4, BUN 34, creatinine 0.9, glucose 75. Bilirubin is 3.4 with a direct of 2.8. AST, ALT 48 and 122. Alkaline phosphatase 144. Albumin low at 2.2. IMPRESSION: 1. Cholangitis. Rigors and temperature of 101.9. I suspect he has cholangitis. I think of absent of white count might be due to his underlying pancytopenia. Would continue the Zosyn for now pending MRCP. He could have total parenteral nutrition (TPN) related cholestasis but that could not be causing the fever or the rigors. 2. Query adrenal insufficiency. There is some question whether he has renal insufficiency. He was put on Solu-Medrol. This is not a mineral corticoid and will not provide sufficient adrenal replacement. We will stop the methylprednisolone, put him hydrocortisone immediate dose of 100 mg daily and then we will order 60 mg every 12 hours. The case has been discussed with Dr. Porter and his team today. Appreciate the assistance of medical student on this case.
[2019-12-04] MEDS: HYDROCORTISONE 100 MG/2 ML VIAL (J1720 PER 1) IV SCH ×2 (14:00→23:53)
--- NOTE | 2019-12-04 14:20 | REP ---
MRI ABDOMEN WITHOUT CONTRAST: MRCP EXAM. HISTORY: Rule out CBD stone. COMPARISON: CT study, December 03, 2019. TECHNIQUE: T2-weighted axial and coronal scans are acquired. MRCP exam is acquired, and maximum intensity projection images are generated. MRCP FINDINGS: No focal hepatic lesion is seen. No splenic lesion is observed. There is no visible filling defect in the gallbladder. There is no evidence of intrahepatic bile duct dilation. The common bile duct is 6.6 mm in diameter. There is no MRCP evidence to suggest choledocholithiasis. The main pancreatic duct is 2.6 mm in greatest diameter. No mass lesion is observed in the pancreas. There is a right upper quadrant ileostomy. A small left renal cortical cyst is seen. IMPRESSION: Unremarkable MRCP. No evidence of choledocholithiasis. Electronically Signed by Oscar Sumner MD 12/05/2019 05:18 A
[2019-12-04] MEDS ORDERED: propofoL 200 MG/20 ML VIAL As Ordered ONE (14:35)
[2019-12-04] MEDS ORDERED: LIDOCAINE 2% INJ 100 MG/5 ML SDV (FOR ANES.) As Ordered ONE (14:35)
[2019-12-04] MEDS ORDERED: MIDAZOLAM INJ 2 MG/2 ML VIAL (J2250) As Ordered ONE (14:35)
[2019-12-04] MEDS ORDERED: ROCURONIUM BROMIDE 50 MG/5 ML VIAL As Ordered ONE (14:35)
[2019-12-04] MEDS ORDERED: ISOVUE-300 61% 50ML VIAL (Q9967) As Ordered ONE (14:35)
[2019-12-04] MEDS ORDERED: fentaNYL 100 MCG/2 ML INJECTION (J3010) As Ordered ONE (14:35)
[2019-12-04] MEDS: KCL 40MEQ in NS 1000ML 1,000 ML IV SCH ×3 (15:03→21:12)
[2019-12-04] MEDS ORDERED: MIDAZOLAM INJ 2 MG/2 ML VIAL (J2250) IV ONE (17:00)
--- NOTE | 2019-12-04 17:15 | IPN ---
DATE: 12/04/2019 ADDENDUM Extensive conversations with Dr. Bhandari today, ultimately decided not to proceed with endoscopic retrograde cholangiopancreatography (ERCP) as the risk of this outweighed the potential benefit. Consider possibility of line sepsis. I have ordered repeat blood cultures. He had two drawn on admission, I have ordered more. Will continue the Zosyn, IV steroids and IV fluids. Await for results of cultures to come back.
[2019-12-04] MEDS: [UNRECOGNIZED DRUG - OTHER] IV SCH ×2 (18:00→21:19)
--- NOTE | 2019-12-04 20:03 | CR.PDOC ---
General Surgery Consultation Date of Consultation 12/04/19 History and Physical REASON FOR CONSULTATION: Possibility of acute cholangitis HISTORY OF PRESENT ILLNESS: Jonathan is a 59-year-old male with pertinent past medical history of Crohn's disease with multiple bowel resections, who presented to the emergency department with rigors and fever for the last couple days. He had an accompanying episode of vomiting, as well as lower abdominal pain around site of previous incisions. Patient reports that his abdominal pain is unchanged since 09/2019. Patient reports he had an initial bowel resection in 1999, followed by subsequen t resection 2 months ago in September 2019. He states that approximately "60 cm" of bowel have been resected in total. Patient's Crohn's and gastrointestinal care have occurred in [place]. He is currently TPN dependent, 16 hours a day. PAST MEDICAL HISTORY: Crohn's disease status post resection of the small intestine ileum and had of the colon on TPN PAST SURGICAL HISTORY: Initial bowel resection in 1999 with second bowel resection 2 months ago (September 2019) Lumbar laminectomy. Left elbow reconstruction. Ruptured Achilles tendon repair ALLERGIES: Please see below. FAMILY HISTORY: Cancer, unspecified COPD Diabetes Coronary artery disease HOME MEDICATIONS: Please see below. REVIEW OF SYSTEMS: GENERAL: Endorses rigors and fever over the last 2 days CARDIOVASCULAR: Denies chest pain or palpitations PULMONARY: Denies shortness of breath or cough GASTROINTESTINAL: Endorses lower abdominal pain, specifically around former incision sites that has been present and unchanged since September 2019. NUTRITION: TPN dependent PHYSICAL EXAMINATION: VITALS SIGNS: Please see below. GENERAL APPEARANCE: Patient is a thin, somewhat sick appearing male. He is lying flat in bed at time of exam. He appears to be in mild to moderate distress secondary to his constitutional and gastrointestinal symptoms. Awake, alert and oriented 3. Responds appropriately to questions or commands. HEENT: Injected left sclera with what appears to be bruising periorbitally on the left side. LUNGS: Clear to auscultation bilaterally. Patient is breathing on room air. He is speaking in full sentences. HEART: Regular rate and regular rhythm, with normal S1, S2. No murmurs or rubs are appreciated. There is no lower extremity edema. ABDOMEN: Soft and nondistended. There is a high output ostomy present in the right abdomen with colostomy that. There appears to be good granulation tissue of the ostomy EXTREMITIES: No lower extremity edema, clubbing or cyanosis LABORATORY DATA: Please see below. IMPRESSION AND PLAN: We are not convinced that patient is suffering from acute cholangitis. He has a non-elevated white count and does not have right upper quadrant abdominal pain. Other than cholangitis, patient's diagnosis could be a GI virus or related to his TPN. From a general surgery standpoint, we're not planning any surgical intervention at this time. -Patient's TPN can be restarted and his fluids were switched to a rate of 150mL/hour Thank you for the consultation and the privilege to partake in the care of Mr. Aly. We will continue to follow along and should further questions or concerns arise from a general surgery perspective, please feel free to reach out. Vital Signs Vital Signs Date Time Temp Pulse Resp B/P (MAP) Pulse Ox O2 Delivery O2 Flow Rate FiO2 12/04/19 18:00 50 18 94/52 (66) 98 Room Air 12/04/19 16:00 97.1 I&Os I&O- Last 24 Hours up to 6 AM 12/04/19 06:00 Intake Total 3300 ml Output Total 1600 ml Balance 1700 ml Laboratory Data Labs 24H Laboratory Tests 2 12/03/19 21:50: Urine Color ROSEY, Urine Appearance CLEAR, Urine pH 7.0, Urine Specific [place] 1.021, Urine Protein 2+H, Urine Glucose (UA) NEGATIVE, Urine Ketones NEGATIVE, Urine Blood NEGATIVE, Urine Nitrite NEGATIVE, Urine Bilirubin 1+H, Urine Urobilinogen 2.0H, Urine Leukocyte Esterase NEGATIVE, Urine WBC (Auto) 1, Urine RBC (Auto) 3, Urine Hyaline Casts (Auto) 0, Urine Bacteria (Auto) NEGATIVE, Urine Squamous Epithelial Cells 0, Urine Mucus (Auto) SMALL, Urine Sperm (Auto) 12/04/19 04:24: Immature Granulocyte % (Auto) 1.1, Neutrophils (%) (Auto) 83.7H, Lymphocytes (%) (Auto) 5.9L, Monocytes (%) (Auto) 8.7H, Eosinophils (%) (Auto) 0.4, Basophils (%) (Auto) 0.2, Neutrophils # (Auto) 4.4, Lymphocytes # (Auto) 0.3L, Monocytes # (Auto) 0.5, Eosinophils # (Auto) 0.0, Basophils # (Auto) 0.0, Nucleated Red Blood Cells % (auto) 0.0, Anion Gap 6L, Glomerular Filtration Rate > 60.0, Calcium Level 8.5, Total Bilirubin 3.4H, Direct Bilirubin 2.8H, Aspartate Amino Transf (AST/SGOT) 48H, Alanine Aminotransferase (ALT/SGPT) 122H, Alkaline Phosphatase 144H, Total Protein 5.0L, Albumin 2.2L, Albumin/Globulin Ratio 0.79L, Prealbumin 18.4L, Cortisol Response to Stimulation Cortisol Baseline 12/04/19 12:36: Bedside Glucose (Misc Panel) 97 CBC/BMP Laboratory Tests 12/04/19 04:24 Microbiology Microbiology 12/04/19 Blood Culture, Received Pending 12/04/19 Blood Culture, Received Pending 12/03/19 Blood Culture - Preliminary, Resulted No growth after 24 hours . All specim... 12/03/19 Respiratory Virus Panel (PCR) ([facility]) - Final, Complete 12/03/19 Blood Culture - Preliminary, Resulted No growth after 24 hours . All specim... Home Medications Scheduled Lactated Ringer's (Lactated Ringers) 1,000 Ml Iv.soln, 1,000 ML IV Q6H, (Reported) Prednisone (Prednisone) 10 Mg Tablet, 10 MG PO DAILY, (Reported) Sodium/Pot/Mag/Calc/Chlor/Acet (TPN Electrolytes Vial) 20 Ml Vial, 1 DOSE IV QPM, (Reported) GIVEN AT 1800. RUNS THROUGHOUT THE NIGHT. Scheduled PRN Loperamide HCl (Anti-Diarrheal) 2 Mg Tablet, 2 MG PO QID PRN for DIARRHEA, ( Reported) Oxycodone HCl (Oxycodone HCl) 5 Mg/5 Ml Solution, 5 MG PO Q6H PRN for PAIN, (Reported) Allergies Coded Allergies: Sulfa (Sulfonamide Antibiotics) (Verified Allergy, Intermediate, swelling of extremities, 12/03/19) SHAMAR RUSSELL D.O. Dec 04, 2019 20:03
[2019-12-04] MEDS: **NOTE PATIENT COMMENT** MISC XX SCH (21:00)
[2019-12-04] MEDS ORDERED: NOREPINEPHRINE BITARTRATE 8 MG in D5W 492 ML IV SCH (21:45)
--- NOTE | 2019-12-04 23:59 | CR ---
DATE OF CONSULTATION: 12/04/[address] Smith to emergently evaluate Mr. Aly for hypotension. HISTORY OF PRESENT ILLNESS: Mr. Aly is a 59-year-old male. His past medical history is significant for Crohn's disease for which he has had a resection of the terminal ileum and has a high output ostomy. He presented to [facility] yesterday after having a 3-day history of fevers associated with shaking chills. He also had one episode of emesis. Additionally, he has a [id number] week history of having had gradually darkening urine. 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 He still eats and he will try to eat [place] and bread to try to slow down his ostomy. He also drinks significant fluid. He injured his eyes, his left eye, about a week ago when he fell. He notes that he usually gets up and stabilizes self on the side of the bed or chair before he gets up. On that date, he felt colostomy was going to "pop" so he got up quickly and walked rapidly in the bathroom. He got as far as the door when he felt very lightheaded and dizzy. He held onto the door jam and thought he would be able to stabilize himself, but he ended up blacking out and falling and he awoke when he injured his eye. In addition to the acute symptom, he has been losing weight recently. When he was admitted here, he was febrile, but had a normal white count. There was concerned with acute cholangitis, but it was not felt to be the case by a gastrointestinal service and so the decision was to not proceed with endoscopic retrograde cholangiopancreatography (ERCP). It was then thought possibly line sepsis was the difficulty. He received a liter bolus of fluid today and also receiving 250 mL per hour. He also received stress doses of hydrocortisone as he is on prednisone chronically. With these efforts, he was maintaining systolic blood pressure in the 80s to 90s so his MAP was greater than 65. Upon my arrival, Mr. Aly was sitting on the side of the bed in no acute distress. He reported to me he thinks a lot of his difficulties were dehydration. He did not offer any different history then what was noted above, except to state that he feels he might be feeling slightly better. He has had one shaking chill in the hospital with the last one being earlier this morning. He describes his shaking chills as lasting for 20-30 minutes and resolving, but then recurring and they had been recurring at this rate for several days. He knows of no ill contact. He feels that his emesis was related to starting oxycodone liquid, which made him nauseous. He had been taking oxycodone by crushing up the pill and taking it with his bread, but there was a question as to whether or not it was being absorbed, so this was started. He does not feel he threw up because of gastrointestinal illness. PAST MEDICAL HISTORY: 1. Crohn's disease. a. Status post resection of small intestine ileum and HARD of the colon. I believe 3 months ago. b. On total parenteral nutrition (TPN). Plan is for reconnection in the future. 2. Status post lumbar laminectomy. 3. Status post reconstruction of left elbow. 4. Status post repair of ruptured Achilles tendon. SOCIAL HISTORY: Mr. Aly denies alcohol usage or street drug usage. He does use medical marijuana, which helps with his back pain and arthritis. He denies tobacco usage. FAMILY HISTORY: There is a family history of coronary artery disease, cancer, COPD and diabetes mellitus. ALLERGIES: SULFA. MEDICATIONS ON ADMISSION - Lactated Ringer's 1000 AML every 6 hours - loperamide 2 mg by mouth four times a day as needed - oxycodone 5 mg by mouth every 6 hours as needed - prednisone 10 mg daily - TPN overnight. REVIEW OF SYSTEMS: Per history of present illness. The remainder of pertinent review of systems are negative. PHYSICAL EXAMINATION: General: Mr. Aly is sitting on the side of the bed initially in no acute distress. Can complete full sentences. No cough throughout the evaluation. He was able to move back to the supine position, though he did appear uncomfortable in doing so. Vital signs: Temperature 97.1 with a T-max of 101.4, pulse 50s, blood pressure 90s/50s with a MAP of 77, respiratory rate 18, SPO2 98% on room air. HEENT: Anicteric, injected left sclera with bruising around the eye. Nares: Patent bilaterally. Normal-appearing mucosa. Oropharynx clear, no lesions, dry appearing mucosa, good dentition. Neck: Supple, without thyromegaly or masses, trachea is midline. Without jugular venous distension (JVD). Lymph: Without cervical or supraclavicular lymphadenopathy. Chest: Normal shape. Lungs: Symmetric excursion, good air entry, no wheeze, rhonchi or crackle on tidal excursion. Normal I:E. No accessory muscle usage or retractions. Cardiovascular: Bradycardic with regular rhythm, no murmur, rub or gallop appreciated. Abdomen: Colostomy bag in place. Viable appearing mucosa. Positive bowel sounds, soft, mild generalized tenderness. No rebound or guarding. Extremities: No clubbing, cyanosis or edema, palpable pedal pulses. Neurologic: No focal deficits, alert, awake and oriented x3. Psychiatric: Appropriate mood. LABORATORY DATA: Complete blood count (CBC) from this morning showed a hemoglobin 10.9, hematocrit 34.2, platelet count 64,000, white blood cell count 5300 with a differential of 84% neutrophils, 6% lymphocytes, 9% monocytes. His admission WBC count was 8.1. Chemistry showed a sodium 144 140, potassium 3.4, chloride 104, bicarbonate 30, anion gap 6, BUN 39, creatinine 0.96, glucose 75. Calcium 8.5, total bilirubin 3.4, direct bilirubin 2.88, AST 48, ALT 122, alkaline phosphatase 144, total protein 5.0, albumin 2.2, prealbumin 18.4. Other pertinent labs at the time of admission included a lactic acid of 1.5, CK of 54 and BNP of 86. INR was 0.96 on admission. VBG at the time of admission is listed as 7.5/41/65. I reviewed his chest x-ray, as well as the report on 12/03/2019. That showed normal-appearing cardiac silhouette and pulmonary vascular shadows. Normal-appearing mediastinal and hilar regions. No acute infiltrates. IMPRESSION: 1. Hypotension Based on his history and examination, I suspect this is secondary to dehydration. While he has been getting IV fluid, he has only received 2 liters; and with his high output colostomy, I suspect that has not been sufficient. The differential includes sepsis, but while he reports shaking chills, they have also gone on for several days and would expect to see a more systemic illness if this is from bacteremia. If it is from bacteremia, a more likely source for that type response would be a gram-negative perhaps translocation and less likely from line sepsis. His lactic acid level was also normal, which would argue against a severe sepsis causing his hypotension. Certainly, he likely has sepsis at some level, but I do not believe that his hypotension is septic shock. 2. Crohn disease, status post terminal ileal resection. 3. Bradycardia. Most likely this is secondary to vagal stimulus because of decreased filling of the RV with dehydration. RECOMMENDATIONS: 1. Given the overall constellation, I opted first to resident services supervisor CVP which was 3 and he was given a liter fluid bolus and his CVP lizbeth to 08. 2. At this time, I do not feel we need to discontinue the PICC line. He has been receiving fluids all day and has not had any kind of systemic inflammatory type response. 3. I feel it is okay to give him his TPN. 4. However, I would change his IV fluids to peripheral with his output of colostomy I feel we are going to have to taper him with vasopressors. He is still going to require fluids likely at a fairly high IV rate. 5. Will start Levophed. While he has had bradycardia at times, I do not feel that we need to use a medication like dopamine as I suspect his bradycardia is a physiologic response and related vagal stimulus. 6. Will check CVP every 8 hours. 7. I agree with continuing antibiotics. 8. Given his high output failure, high output colostomy, weight loss and what appears to be slowly progressive dehydration, I feel his supplements need to be addressed and even consideration of other medications to decrease his high output failure. 9. I spoke with Dr. Smith regarding these recommendations and he is in agreement. Critical care time: 65 minutes not including procedure time.
[2019-12-05] VITALS (20 sets, daily range): BP systolic 80–123; BP diastolic 50–84
[2019-12-05] MEDS: MORPHINE 4 MG/ML 1ML VIAL/SYRINGE (J2270) IV PRN ×6 (00:25→12:11)
[2019-12-05] MEDS: KCL 40MEQ in NS 1000ML 1,000 ML IV SCH ×3 (02:34→13:30)
[2019-12-05 05:03] LABS: HEMATOCRIT 33.5 % (42.0-52.0); HEMOGLOBIN 10.5 g/dl (13.5-17.5); MEAN CORPUSCULAR HEMOGLOBIN 31.3 pg (27.0-33.0); MEAN CORPUSCULAR HGB CONC 31.3 g/dl (32.0-36.5); MEAN CORPUSCULAR VOLUME 99.7 fl (80.0-96.0); RED BLOOD COUNT 3.36 10^6/uL (4.30-6.10)
[2019-12-05 05:05] LABS: PLATELET COUNT, AUTOMATED 64 10^3/uL (150-450)
[2019-12-05 05:31] LABS: ALT/SGPT 94 U/L (12-78); BILIRUBIN,TOTAL 2.9 MG/DL (0.2-1.0); BLOOD UREA NITROGEN 39 MG/DL (7-18); CALCIUM LEVEL 7.9 MG/DL (8.5-10.1); CARBON DIOXIDE LEVEL 29 MEQ/L (21-32); CHLORIDE LEVEL 107 MEQ/L (98-107); CREATININE FOR GFR 0.87 MG/DL (0.70-1.30); GLOMERULAR FILTRATION RATE > 60.0 (>56); GLUCOSE, FASTING 284 MG/DL (70-100); MAGNESIUM LEVEL 1.9 MG/DL (1.8-2.4); POTASSIUM SERUM 4.6 MEQ/L (3.5-5.1); SODIUM LEVEL 141 MEQ/L (136-145); TOTAL PROTEIN 4.9 GM/DL (6.4-8.2)
[2019-12-05] MEDS: PIPERACILLIN/TAZOBACTAM SOD 3.375 GM in D5W MINI-BAG PLUS 50 ML IV SCH ×2 (07:58→15:53)
[2019-12-05] MEDS: HYDROCORTISONE 100 MG/2 ML VIAL (J1720 PER 1) IV SCH (12:11)
[2019-12-05] MEDS ORDERED: ACETAMINOPHEN *IV* 1,000 MG in IV 1 EA IV ONE (13:00)
--- NOTE | 2019-12-05 15:14 | IPNPDOC ---
Subjective Date Seen The patient was seen on 12/05/19. Subjective Chief Complaint/HPI Mr. Aly is still having high output from his iliostomy. At home he reports that he is on 4L of LR daily via his PICC. We currently have him on 3L daily and this seems to be holding his even. As soon as it is safe he is looking forward to discharge from our facility so he can return to [place] to receive care from his usual surgical team and be with his family support. Pulmonary: Reports: Dyspnea; Denies: Cough Cardiovascular: Denies: Chest Pain, Palpitations Psych: Reports: Mood Normal Objective Physical Examination General Exam: Positive: Alert, Cooperative, No Acute Distress (he is standing over the toilet emptying his ostomy bag when I entered the room. ) Eye Exam: Positive: Conjunctiva & lids normal; Negative: Sclera icteric ENT Exam: Positive: Mucous membr. moist/pink Neck Exam: Negative: Lymphadenopathy Chest Exam: Positive: Clear to auscultation, Normal air movement Heart Exam: Positive: Rate Normal, Normal S1, Normal S2; Negative: Murmurs Abdomen Exam: Positive: Normal bowel sounds, Soft, Other (his ostomy appliance seems well applied and is intact) Extremity Exam: Negative: Edema Psych Exam: Positive: Mood NL, Oriented x 3 Assessment /Plan Problems (1) Hypotension Response to Treatment: Stable, Improving Discussed With: Nurse, Sheeter Machine Operator, Patient Problem Specific Plan: Monitor Clinically, Repeat Labs Problem Text: He is off pressors now. He seemed to respond well to both fluid resuscitation and the addition of hydrocortisone. I'm not sure which one of these (or more likely both of them) helped improve his blood pressure. Regardless he is doing better now than this is good news. (2) Sepsis Status: Acute Discussed With: Nurse, Sheeter Machine Operator, Patient Problem Specific Plan: Monitor Clinically, Repeat Labs Problem Text: I agree with Dr. Gong, I believe he has sepsis, but I do not believe his hypotension is septic shock. He had rigors and a fever again just before I saw him today. A new set of blood cultures were taken (from his line and from the periphery) at that time. The existing set of blood cultures are negative so far. He remains on Zosyn which was started for empiric treatment of an ascending cholangitis. If we get more evidence for a line infection we may need to consider gram positives and broaden his coverage to include anti-MRSA antibiotics. (3) Adrenal insufficiency Response to Treatment: Improving Discussed With: Patient Problem Specific Plan: Monitor Clinically Problem Text: He was on chronic prednisone for his Crohn's disease prior to admission. I'm not certain adrenal insufficiency is a part of his hypotension, but his hypotension did respond well shortly after he got a dose of hydrocortisone. We'll continue adrenal repletion with hydrocortisone for now. The patient is concerned about this, because he wants to get off of all steroids so that he can have reversal of his ileostomy. While I think that's an important goal, I don't think it's more important than maintenance of blood pressure and other vital functions. I tried to explain this to him several times, but he remained fixated on getting off of steroids as quickly as possible. I'm not sure he ultimately understood. (4) Acquired short bowel syndrome Status: Chronic Discussed With: Patient Problem Specific Plan: Monitor Clinically, Repeat Labs Problem Text: He has short gut syndrome with a high output ileostomy. The patient is focused on getting his ostomy reversed. If this does not work for him, I would suggest he consider Gattex (teduglutide) to help improve his absorptive capacity and decrease the need for the high volume nutrition and hydration. He didn't want to hear from me about alternatives to having his ostomy reversed, but I pointed out that even if he is reconnected he could have a higher output situation and this still may be needed. (5) Crohn's disease Status: Chronic Problem Text: He has had a couple of bowel resections based on the Crohn's. The most recent one was in September 2018 done at [facility] in [place]. This is the underlying cause of his short gut syndrome. It is possible that, in starting to taper his steroids off for his reanastomosis, his Crohn's disease flared. (6) On total parenteral nutrition Problem Text: He is on TPN at home infused through a PICC via his surgeon in [place]. We are continuing TPN while here. (7) Hyperbilirubinemia Status: Acute Response to Treatment: Improving Problem Specific Plan: Repeat Labs Problem Text: His bilirubin is improving. Initially we thought this might be related to ascending cholangitis, but now I am leading toward parenteral nutrition associated cholestasis. We'll continue to monitor. (8) Transaminitis Status: Acute Response to Treatment: Improving Problem Specific Plan: Repeat Labs Problem Text: His liver enzymes are improving. Initially we were leaning toward ascending cholangitis, but now I think it's more likely parenteral nutrition associated cholestasis. We'll continue to monitor. (9) Macrocytic anemia Status: Chronic Problem Specific Plan: Repeat Tests Problem Text: He has a mild macrocytic anemia. Will order B12 and folate levels to see if he needs additional supplementation of these micronutrients. (10) Thrombocytopenia Response to Treatment: Stable Problem Text: His thrombocytopenia is currently stable. He is not a dangerous range. I suspect it's related to his acute illness. We'll monitor for now. VS, I&O, 24H, Fishbone Vital Signs/I&O Vital Signs Date Time Temp Pulse Resp B/P (MAP) Pulse Ox O2 Delivery O2 Flow Rate FiO2 12/05/19 12:21 22 Room Air 12/05/19 12:00 101.1 111 123/63 (83) 99 12/05/19 10:19 6.0 I&O- Last 24 Hours up to 6 AM 12/05/19 05:59 Intake Total 7343.5 ml Output Total 8650 ml Balance -1306.5 ml Laboratory Data 24H LABS Laboratory Tests 2 12/04/19 18:01: Bedside Glucose (Misc Panel) 116H 12/04/19 23:59: Bedside Glucose (Misc Panel) 161H 12/05/19 04:32: Nucleated Red Blood Cells % (auto) 0.0, Immature Platelet Fraction 8.9, Anion Gap 5L, Glomerular Filtration Rate > 60.0, Calcium Level 7.9L, Magnesium Level 1.9, Total Bilirubin 2.9H, Aspartate Amino Transf (AST/SGOT) 30, Alanine Aminotransferase (ALT/SGPT) 94H, Alkaline Phosphatase 137H, Total Protein 4.9L, Albumin 2.0L, Albumin/Globulin Ratio 0.69L 12/05/19 12:01: Bedside Glucose (Misc Panel) 155H CBC/BMP Laboratory Tests 12/05/19 04:32 Microbiology Microbiology 12/05/19 Blood Culture, Received Pending 12/05/19 Blood Culture, Received Pending 12/04/19 Blood Culture, Received Pending 12/04/19 Blood Culture, Received Pending 12/03/19 Blood Culture - Preliminary, Resulted No growth after 24 hours . All specim... 12/03/19 Respiratory Virus Panel (PCR) ([facility]) - Final, Complete 12/03/19 Blood Culture - Preliminary, Resulted No growth after 24 hours . All specim... Jann Monet MD Dec 05, 2019 3:14 pm
--- NOTE | 2019-12-05 16:08 | IPN ---
DATE: 12/05/2019 Mr. Aly did well overnight. He continued to get aggressive fluid replacement as well as received his total parenteral nutrition (TPN) without difficulty. He did not require vasodilator support and was able to receive pain medications. This morning he has received his oral pain medications and has been able to get out of bed without feeling lightheaded or dizzy. Overall he reports that he is feeling much better. He continues to have significant stool output through his colostomy. He denies any shortness of breath. No cough. No chest pain or pressure. No nausea or emesis. He has not had any further feelings of chills or rigors. He confirmed to me that he is receiving 4 liters of lactated Ringer's (LR) at home as well as receiving the TPN for 16 hours a day. He does not feel that this is enough supplementation and feels that he has slowly been getting dehydrated. OBJECTIVE: PHYSICAL EXAMINATION: GENERAL: Mr. Aly is lying in bed in no acute distress. He can complete full sentences. No cough throughout the evaluation. VITAL SIGNS: Temperature 97.1, pulse 48, which is most predominantly in the 50, respiratory rate 20, blood pressure 123/84 with a mean arterial pressure (MAP) of 97, SpO2 of 100% on room air. HEENT: Anicteric. Nares patent bilaterally. Oropharynx clear, slightly less dry appearing mucosa. NECK: Supple without jugular venous distention (JVD), without thyromegaly or masses. Trache is midline. LYMPHATIC: Without cervical or supraclavicular lymphadenopathy. LUNGS: Symmetric excursion. Good air entry. No wheeze, rhonchi, or crackle on tidal excursion. Normal Inspiratory to expiratory (I-to-E). No accessory muscle usage or retractions. CARDIOVASCULAR: Bradycardic, regular rhythm. Normal S1, S2. No murmur, rub, or gallop appreciated. ABDOMEN: Positive bowel sounds. Soft, mild tenderness in the right lower quadrant that is unchanged from yesterday. No rebound or guarding. EXTREMITIES: Warm and well perfused without clubbing, cyanosis, and edema. Palpable pedal pulses bilaterally. LABORATORY DATA: CBC from this morning showed a hemoglobin of 10.5, hematocrit 33.5, platelet count 64,000, and white blood cell count 6000. Chemistries show sodium 141, potassium 4.6, chloride 107, bicarbonate 29, anion gap 5, BUN 39, creatinine 0.9, glucose 284, calcium 7.9, magnesium 1.9. Total bilirubin 2.9 (down from 3.4), AST 30, ALT 94 (down from 122), alkaline phosphatase 137 (down from 144), total protein 4.9, albumin 2.0. All cultures remain negative to date. Central venous pressure (CVP) 8. IMPRESSION: 1. Hypotension. I feel that this is secondary to hypovolemia related to high-output colostomy. It has responded to fluids. Unfortunately, this is due to his high-output colostomy, and he is going to need to have a plan to have increased fluids as an outpatient, as this likely will continue to happen. 2. Sepsis. Again, I feel he had sepsis but that his hypotension is not secondary to septic shock. Given his history of shaking chills, it is most suspicious for translocation of bacteremia. I doubt line sepsis given that he had been receiving fluids through that device since admission and has not had recurrent rigors like he did at home. If it is secondary to transient bacteremia, I would question whether it is secondary to bowel and whether they have not occurred because he has not been eating inpatient. 3. Bradycardia felt secondary to vagal stimulation. 4. Crohn's disease, status post terminal ileum resection in early to mid September 2019. High-output colostomy. 5. Thrombocytopenia. RECOMMENDATIONS: 1. Unfortunately, I do not feel we can decrease the amount of fluid he is receiving but would decrease the amount of potassium contained within the fluid. 2. Will continue his TPN. 3. Agree with continuing antibiotics. 4. Will start allowing him to take oral. 5. Would reculture should he spike or develop shaking chills. 6. Will discontinue scheduled CVP monitoring but will obtain on an as-needed basis.
--- NOTE | 2019-12-05 17:19 | IPN ---
DATE: HISTORY: The patient is a 59-year-old patient admitted yesterday by [facility] with surgery consultation for a history of fevers and rigors. He had elevations of his liver function tests and the question of cholangitis was raised. An MRI of the abdomen was obtained, which revealed no evidence of cholelithiasis or choledocholithiasis with a normal-sized common bile duct. He reports that he has continued with intermittent fevers and occasional rigors still. He was placed on antibiotics with piperacillin tazobactam by his primary service. He has been receiving intravenous fluids due to a large output of fluid from his ileostomy. Vital signs show that his maximal temperature over the last 24 hours was 101.1 at noon today. Pulse has ranged from the 50s to as high as 111, and his blood pressure today has been good. Intake and output show that yesterday he had 1000 in with 5800 out. His urine output yesterday was 1220, and he still has a good urine output today. PHYSICAL EXAMINATION: The patient is lying quietly on the hospital bed. He is alert and oriented. He does not appear in any distress at present. The abdomen is flat with his stoma on the right draining a large amount of watery contents. Laboratory studies today show white count of 6, hemoglobin of 10, hematocrit 34, and platelet count of 64,000. Chemistry profile shows sodium of 141, potassium 4.6, chloride 107, CO2 of 29, BUN of 39, creatinine 0.87, and a glucose of 284. Magnesium is 1.9. Total bilirubin is 2.9, which is down from 3.9 at the time of admission. AST, ALT and alkaline phosphatase are 30, 94, and 137, respectively, and these are all slightly improved from admission. His total protein is 4.9 with an albumin of 2.0, which are both significantly depressed. IMPRESSION: The patient is a 59-year-old man with Crohn's disease who underwent resection of several diseased areas of his small and large bowel back just before . He reports that his physician and surgeon in [place] were trying to wean him off his steroids in anticipation of closing his ileostomy sometime in the next month or so. PLAN: The patient and I had a long talk about all of the events that brought him to this point. His significant concerns are primarily the Crohn disease with high output from his ileostomy and his need for total parenteral nutrition (TPN). Second issue that he discussed quite a bit was his reliance on some narcotic analgesics for chronic back pain and how his physician has been trying to more aggressively wean him off these medications. He did suggest that he thinks it might be best for him to return to [place] to continue his care with the specialist there regarding his ileostomy. I think this may be a very reasonable thing, as he has confidence in this group of physicians and believes that they will incorporate the plan for his ileostomy closure into his other medical care. He certainly does not appear to require any urgent surgical intervention here. SULEMAN
[2019-12-05] MEDS: KCL 20MEQ in NS 1000ML 1,000 ML IV SCH (19:16)
[2019-12-05] MEDS: **NOTE PATIENT COMMENT** MISC XX SCH (21:00)
[2019-12-05] MEDS ORDERED: VANCOMYCIN HCL 500 MG in D5W MINI-BAG PLUS 100 ML IV ONE (21:30)
[2019-12-05] MEDS: [UNRECOGNIZED DRUG - OTHER] IV SCH (22:00)
[2019-12-05] MEDS ORDERED: VANCOMYCIN HCL 750 MG, VIAL MATE ADAPTER 1 EACH in D5W 250 ML IV ONE (22:30)
[2019-12-05] MEDS ORDERED: NS 1,000 ML IV ONE (23:30)
[2019-12-06] VITALS (17 sets, daily range): BP systolic 85–136; BP diastolic 51–78
[2019-12-06] MEDS: HYDROCORTISONE 100 MG/2 ML VIAL (J1720 PER 1) IV SCH ×2 (01:01→12:53)
[2019-12-06] MEDS: PIPERACILLIN/TAZOBACTAM SOD 3.375 GM in D5W MINI-BAG PLUS 50 ML IV SCH ×3 (02:12→15:44)
[2019-12-06] MEDS: KCL 20MEQ in NS 1000ML 1,000 ML IV SCH ×2 (03:02→13:33)
[2019-12-06] MEDS: MORPHINE 4 MG/ML 1ML VIAL/SYRINGE (J2270) IV PRN ×8 (03:39→21:23)
--- NOTE | 2019-12-06 05:13 | PHACANCOPD ---
PHARMACY VANCOMYCIN DOSING Pt Demographics Demographics Patient Age:59 , Weight:56.200 , Gender: male Adjusted Body Weight Date: 12/06/19, Adjusted Body Weight: Kg Vancomycin Vancomycin indication: GRAM POSTITVE BACTEREMIA Vancomycin Target Ranges: 15-20 mcg/ml Vancomycin Load Y/N: Yes Load Dose Date Time Vancomycin Load Dose: 1250MG Date: 12/06 Time: 1AM Vancomycin Dose Date: 12/06/19. Current Vancomycin Dose: [1 GRAM IV Q12H] Intermittent Dosing?: No Labs Micro Microbiology 12/05/19 Blood Culture, Received Pending 12/05/19 Blood Culture, Received Pending 12/04/19 Blood Culture - Preliminary, Resulted No growth after 24 hours . All specim... 12/04/19 Blood Culture - Preliminary, Resulted No growth after 24 hours . All specim... 12/03/19 Blood Culture - Preliminary, Resulted No Growth after 48 hours. All Specime... 12/03/19 Respiratory Virus Panel (PCR) ([facility]) - Final, Complete 12/03/19 Blood Culture - Preliminary, Resulted No Growth after 48 hours. All Specime... Creatinine Clearance Date:12/06/19. Creatinine Clearance: [73.56].CALCULATED Assessment and Plan Maintaining Current Dose?: Yes Reason for dose change: No Dose Change Pharmacist Note Pharmacist Note Date: 12/06/19. Pharmacist note:EMPIRIC TX for gram+bacteremia.Patient is currently receiving Pip/Tazo 3.375 Gm [id number] to add pharmacy dosed Vancomycin. Scr=0.87, Calculated CRCL=73.56,Ht:59",wt:56.2kg. 1.25gram as loading dose( 2mg/kg) then will begin Vancomycin 1 gram IV [id number] @0900. Will schedule the first trough level for 12/07@0800 [facility] Dec 06, 2019 05:13
[2019-12-06 08:58] LABS: HEMATOCRIT 32.5 % (42.0-52.0); HEMOGLOBIN 10.4 g/dl (13.5-17.5); MEAN CORPUSCULAR HEMOGLOBIN 31.4 pg (27.0-33.0); MEAN CORPUSCULAR VOLUME 98.2 fl (80.0-96.0); RED BLOOD COUNT 3.31 10^6/uL (4.30-6.10); WHITE BLOOD COUNT 9.8 10^3/uL (4.0-10.0)
[2019-12-06] MEDS ORDERED: VANCOMYCIN HCL 1,000 MG, VIAL MATE ADAPTER 1 EACH in D5W 250 ML IV SCH (09:00)
[2019-12-06 09:17] LABS: PLATELET COUNT, AUTOMATED 38 10^3/uL (150-450)
[2019-12-06 09:21] LABS: ALBUMIN 2.2 GM/DL (3.2-5.2); ALT/SGPT 82 U/L (12-78); ATYPICAL LYMPH 1 % (0-5); BILIRUBIN,TOTAL 2.4 MG/DL (0.2-1.0); BLOOD UREA NITROGEN 36 MG/DL (7-18); CALCIUM LEVEL 8.5 MG/DL (8.5-10.1); CARBON DIOXIDE LEVEL 33 MEQ/L (21-32); CHLORIDE LEVEL 107 MEQ/L (98-107); CREATININE FOR GFR 0.81 MG/DL (0.70-1.30); EOSINOPHILS 2 % (0-3); GLOMERULAR FILTRATION RATE > 60.0 (>56); GLUCOSE, FASTING 126 MG/DL (70-100); LYMPHOCYTES 8 % (16-44); MONOCYTES 6 % (0-5); NEUTROPHILS 75 % (28-66); POTASSIUM SERUM 3.9 MEQ/L (3.5-5.1); SODIUM LEVEL 146 MEQ/L (136-145); TOTAL PROTEIN 5.4 GM/DL (6.4-8.2)
[2019-12-06 09:22] LABS: PLATELET ESTIMATE MARKED DECREASE (NORMAL); TOXIC VACUOLATION 1+
[2019-12-06 09:23] LABS: ANISOCYTOSIS 1+
[2019-12-06] MEDS ORDERED: POTASSIUM CHLORIDE INJ 30 MEQ in NS 1,000 ML IV SCH (16:00)
--- NOTE | 2019-12-06 16:50 | IPNPDOC ---
Subjective Date Seen The patient was seen on 12/06/19. Subjective Chief Complaint/HPI Mr. Aly is frustrated that we don't have ostomy bags for high output situation. He has to empty the standard size bags about every hour or it may pop off. He has been thinking about the plan of care and is requesting transfer to [facility] in [place] so he can be under the care of his surgeon Dr. Mariee. His BP has stabilized, but it has become clear that he is primarily sensitive to fluid input, not steroids (for adrenal insufficiency). Last night when he was between TPN bags, so his fluid input was reduced 166cc/hr, his BP b ecame soft again. When the volume was reintroduced his BP stabilized again. His urine remains quite dark; he is loosing all of his fluids via the high output ostomy. Last night the lab called me and told me that the preliminary gram stain results were positive for gram positive cocci in clusters and chains from one of the cultures taken from his PICC line in the ER. Based on this information I ordered an MRSA screen (which was not done on admission to the ICU for some reason) and started vancomycin in addition to the Zosyn. This morning they clarified that the organisms were gram NEGATIVE, not gram POSITIVE. Therefore, I stopped the vancomycin; the MRSA screen is still pending. I called his surgeon's office and spoke with the on-call physician, Dr. Wall. He had some suggestions for Mr. Aly's care, but preferred not to transfer the patient today. He will let Dr. Mariee know about the request and let her decide if she would want to consider moving the reanastomosis surgery forward. If she does, then they will call back and request that he be transferred to them. However, if she doesn't think the existing plan should be modified then he doesn't think that they will do anything different than we are doing and so it doesn't make sense to transport the patient via ambulance all that way to do the same thing. Dr. Wall did suggest that we start Mr. Aly on Immodium 4mg q3h and Lomotil 2.5mg q6h to try to slow his high output. He requested that I run a C-diff PCR on the ostomy output before starting these medications stating that while C-diff is usually a colonic bug, it has been found in the small intestine before and we need to make sure that it is not C- diff before we start to slow his flow. I ordered this AND called the lab to explain why it is important that this be done even though it doesn't fall within our protocol. General: Reports: Normal Appetite Constitutional: Denies: Chills, Fever Pulmonary: Denies: Dyspnea, Cough Cardiovascular: Denies: Chest Pain, Palpitations Genitourinary: Denies: Dysuria Psych: Reports: Mood Normal Objective Physical Examination General Exam: Positive: Alert, Cooperative, No Acute Distress (laying in bed playing on social media when I entered the room) Eye Exam: Positive: Conjunctiva & lids normal; Negative: Sclera icteric ENT Exam: Negative: Mucous membr. moist/pink (slightly dry) Neck Exam: Negative: Lymphadenopathy Chest Exam: Positive: Clear to auscultation, Normal air movement Heart Exam: Positive: Rate Normal, Normal S1, Normal S2; Negative: Murmurs Abdomen Exam: Positive: Normal bowel sounds, Soft, Other (his ostomy appliance seems well applied and is intact, there is copius thin yellow/billious fluid in the bag) Extremity Exam: Negative: Edema Psych Exam: Positive: Mood NL, Oriented x 3 Assessment /Plan Problems (1) Hypotension Response to Treatment: Stable, Improving Discussed With: Nurse, Grab Jack Worker, Patient Problem Specific Plan: Monitor Clinically, Repeat Labs Problem Text: His BP is very sensitive to his fluid inputs. I have ordered for him to get a total of 275cc/hr and nursing will adjust around the TPN rate to maintain this total. While this seems like a lot his sodium was elevated (I believe from volume contraction) and his urine remains very dark indicating that he is total body dry. We do NOT have accurate I/O as he dumps his own ostomy device and is not measuring it for the nurses. (2) Gram-negative sepsis Problem Text: The lab clarified that he is growing gram-negative organisms from at least one of his BCx. We are waiting on the final speciation and sensitivity. I agree with Dr. Gong, I believe he has sepsis, but I do not believe his hypotension is septic shock. He remains on Zosyn which was started for empiric treatment of an ascending cholangitis. If we the MRSA screen comes back positive we should cover for MRSA too, but I stopped the vancomycin (that was started on the spurious information I received that the cx was growing gram-positives) for now. (3) Acquired short bowel syndrome Status: Chronic Discussed With: Patient Problem Specific Plan: Monitor Clinically, Repeat Labs Problem Text: He has short gut syndrome with a high output ileostomy. The patient is focused on getting his ostomy reversed. His surgical team will call back tomorrow if they want him transferred in consideration for an earlier procedure. In the mean time, we should consider adding the Lomotil and Imodium per his surgeon's recommendations (see HPI) ONCE we can verify that he does not have C. diff. If this does not work for him, I would suggest he consider Gattex (teduglutide) to help improve his absorptive capacity and decrease the need for the high volume nutrition and hydration. He didn't want to hear from me about alternatives to having his ostomy reversed, but I pointed out that even if he is reconnected he could have a higher output situation and this still may be needed. (4) Crohn's disease Status: Chronic Problem Text: He has had a couple of bowel resections based on the Crohn's. The most recent one was in September 2018 done at [facility] in [place]. This is the underlying cause of his short gut syndrome. It is possible that, in starting to taper his steroids off for his reanastomosis, his Crohn's disease flared. (5) On total parenteral nutrition Problem Text: He is on TPN at home infused through a PICC via his surgeon in [place]. We are continuing TPN while here. (6) Thrombocytopenia Response to Treatment: Stable Problem Text: His platelets dropped today. He is not bleeding and is still not in a dangerous range. I suspect it's related to his acute illness. We'll monitor for now. (7) Hyperbilirubinemia Status: Acute Response to Treatment: Improving Problem Specific Plan: Repeat Labs Problem Text: His bilirubin is improving. Initially we thought this might be related to ascending cholangitis, but now I am leading toward parenteral nutrition associated cholestasis. We'll continue to monitor. (8) Transaminitis Status: Acute Response to Treatment: Improving Problem Specific Plan: Repeat Labs Problem Text: His liver enzymes are improving. Initially we were leaning toward ascending cholangitis, but now I think it's more likely parenteral nutrition associated cholestasis. We'll continue to monitor. (9) Macrocytic anemia Status: Chronic Problem Specific Plan: Repeat Tests Problem Text: He has a mild macrocytic anemia. Will order B12 and folate levels to see if he needs additional supplementation of these micronutrients. (10) Adrenal insufficiency Status: Resolved Response to Treatment: Improving Discussed With: Patient Problem Specific Plan: Monitor Clinically Problem Text: Over the last 24h he demonstrated that his BP is exquisitely sensitive to fluids and this makes adrenal insufficiency less likely as the cause of his hypotension. I stopped the hydrocortisone and put him back on the prednisone 10mg that he was taking before the change. Plan/VTE VTE Prophylaxis Ordered?: No VTE Exclusion Mechanical Proph: Other (pt very active around the room) VTE Exclusion Pharmacological: Thrombocytopenia VS, I&O, 24H, Fishbone Vital Signs/I&O Vital Signs Date Time Temp Pulse Resp B/P (MAP) Pulse Ox O2 Delivery O2 Flow Rate FiO2 12/06/19 16:00 98.5 68 20 117/75 (89) 99 Room Air 12/05/19 10:19 6.0 I&O- Last 24 Hours up to 6 AM 12/06/19 06:00 Intake Total 01629 ml Output Total 6830 ml Balance 5232 ml Laboratory Data 24H LABS Laboratory Tests 2 12/05/19 18:59: Bedside Glucose (Misc Panel) 133H 12/06/19 01:21: Bedside Glucose (Misc Panel) 181H 12/06/19 06:15: Bedside Glucose (Misc Panel) 157H 12/06/19 08:36: Nucleated Red Blood Cells % (auto) 0.0, Neutrophils 75H, Band Neutrophils 8, Lymphocytes (Manual) 8L, Monocytes (Manual) 6H, Eosinophils (Manual) 2, Atypical Lymphocytes 1, Anisocytosis 1+, Macrocytosis 1+, Toxic Vacuolation 1+, Platelet Estimate MARKED DECREASE, Immature Platelet Fraction 9.3, Anion Gap 6L, Glomerular Filtration Rate > 60.0, Calcium Level 8.5, Total Bilirubin 2.4H, Aspartate Amino Transf (AST/SGOT) 30, Alanine Aminotransferase (ALT/SGPT) 82H, Alkaline Phosphatase 155H, Total Protein 5.4L, Albumin 2.2L, Albumin/Globulin Ratio 0.69L 12/06/19 13:34: Bedside Glucose (Misc Panel) 179H CBC/BMP Laboratory Tests 12/06/19 08:36 Microbiology Microbiology 12/05/19 Blood Culture - Preliminary, Resulted 12/05/19 Blood Culture - Preliminary, Resulted No growth after 24 hours . All specim... 12/04/19 Blood Culture - Preliminary, Resulted No growth after 24 hours . All specim... 12/04/19 Blood Culture - Preliminary, Resulted No growth after 24 hours . All specim... 12/03/19 Blood Culture - Preliminary, Resulted 12/03/19 Respiratory Virus Panel (PCR) ([facility]) - Final, Complete 12/03/19 Blood Culture - Preliminary, Resulted No Growth after 48 hours. All Specime... Jann Monet MD Dec 06, 2019 16:50
[2019-12-06] MEDS ORDERED: LR 1,000 ML IV SCH (17:00)
[2019-12-06] MEDS ORDERED: [UNRECOGNIZED DRUG - OTHER] IV SCH ×8 (18:00)
[2019-12-06] MEDS ORDERED: SODIUM CHLORIDE IV SCH ×8 (18:00)
[2019-12-06] MEDS ORDERED: POTASSIUM CHLORIDE IV SCH ×8 (18:00)
--- NOTE | 2019-12-06 19:24 | IPN ---
DATE: 12/06/2019 NOTE: Mr. Aly reports that he is doing reasonably well. His biggest concern is the rate at which his colostomy is filling up with stool. He does not have the same size bag as he has at home is been having to empty it more frequently. Because of this, he has actually asked for a transfer to [place]. He is unable to obtain to reach any family members to obtain the colostomy bags from his residence. He has not had any further shaking chills since yesterday around noon. He did have a positive blood culture from one bottle from his peripherally inserted central catheter (PICC) line come back yesterday. Initially we were told it was gram-positive, but then around 5 o'clock this morning we were contacted and was actually gram-negative rods. Otherwise, Mr. Aly is eating well. He denies any chest pain or pressure. No paroxysmal nocturnal dyspnea (PND), orthopnea. He is not lightheaded or dizzy and he has been out of bed to empty his own colostomy bags in the toilet. No other concerns expressed. OBJECTIVE: PHYSICAL EXAMINATION: GENERAL: Mr. Aly is lying in bed in no acute distress. He can complete full sentences. No cough at evaluation. VITAL SIGNS: Temperature 98.6, which is his maximum temperature (T-max). Pulse 50s to 60s, blood pressure 136/78 with a mean arterial pressure (MAP) of 97, respiratory rate 20. SpO2 99% on room air. HEENT: Anicteric. Nares: Patent bilaterally, oropharynx clear. No lesions. Some dry mucosa. NECK: Supple, without jugular venous distention (JVD), thyromegaly or masses. Trachea is midline. LYMPHATICS: Without cervical or supraclavicular lymphadenopathy. LUNGS: Symmetric excursion, good air entry, no wheeze, rhonchi or crackle on tidal excursion. Normal Inspiratory to expiratory ratio (I:E). ABDOMEN: Positive bowel sounds. I was not able to fully examine his abdomen today as he developed leakage around his colostomy i there is pressure placed on his abdomen (he does not feel there is any significant discomfort). EXTREMITIES: Warm and well-perfused without clubbing, cyanosis or edema. Palpable pedal pulses bilaterally. LABORATORY DATA: Complete blood count (CBC) from this morning shows a hemoglobin of 10.4, hematocrit 32.5, platelet count of 38,000 and white blood cell count 9800. Chemistries from this morning shows sodium 146, potassium 3.9, chloride 107, bicarbonate 33, anion gap 6, BUN 36, creatinine 0.81, glucose 126, calcium 8.5. Total bilirubin 2.4, AST 30, ALT 83, alkaline phosphatase 155, total protein 5.4, albumin 2.2. Yesterday intake and output (I and O) was 12,466 in and 7480 out, making a positive 4986. Weight 56.2 kg. Thus far today, 4666 in and 2500 out, making a positive 2166. Weight 57.2. IMPRESSION: 1. Hypotension related to high output colostomy. I again saw him last evening when I was in and he was hypotensive. His central venous pressure (CVP) was again 3 and he responded to increased fluids. It appears that he is needing about 275 per hour fluids to keep up. 2. Sepsis. He has had intermittent rigors. He has gram-positive peyton in one of his blood cultures, which would be a more common pathogen to cause rigors. I also suspect that this is translocation and bacteremia not. If he had a source, I would expect him to be significantly more ill, particularly given that went three days untreated. 3. Bradycardia, intermittent, felt secondary to vagal stimulation. 4. Crohn's disease, status post terminal ileum resection in early to mid September 2019 with high output colostomy. 5. Thrombocytopenia. RECOMMENDATIONS: 1. Dr. Monet spoke with [facility] regarding transfer. Please see his note for details. 2. At the present time, we would continue on his fluids at around 275 mL/hour. He will need some input as to ways to maintain this outpatient pending his surgery. 3. Would discontinue stress dose of hydrocortisone. I do not feel he has clinically benefited from that and if he truly needed it for stress dosing, he would not require it continuously. 4. As his gram stain has been changed to gram-negative peyton, we will discontinue the vancomycin. We also had send a polymerase chain reaction (PCR) for methicillin-resistant Staphylococcus aureus (MRSA), which is still pending. 5. Would continue Zosyn. 6. Given his increased sodium and increasing chloride levels (although he does not have a hyperchloremic metabolic acidemia at the present time) I would change his baseline fluid to lactated Ringer's. 7. Mr. Aly is trying to reach family members to bring his larger colostomy in. He also has suggested that if that does not work, that his outpatient physician obstetrician be contacted to see if they have any available in their office.
[2019-12-06] MEDS: **NOTE PATIENT COMMENT** MISC XX SCH (21:00)
[2019-12-06] MEDS: POTASSIUM CHLORIDE INJ 30 MEQ in LR 1,000 ML IV SCH (22:04)
[2019-12-06 22:56] LABS: CLOSTRIDIUM DIFFICILE PCR NEGATIVE (NEGATIVE)
[2019-12-07] VITALS (9 sets, daily range): BP systolic 81–114; BP diastolic 52–72
[2019-12-07] MEDS: PIPERACILLIN/TAZOBACTAM SOD 3.375 GM in D5W MINI-BAG PLUS 50 ML IV SCH ×2 (00:08→08:11)
[2019-12-07] MEDS: MORPHINE 4 MG/ML 1ML VIAL/SYRINGE (J2270) IV PRN ×11 (00:09→23:16)
[2019-12-07] MEDS: POTASSIUM CHLORIDE INJ 30 MEQ in LR 1,000 ML IV SCH ×4 (02:39→18:58)
[2019-12-07 05:04] LABS: EOS % 0.6 % (0.0-3.0); HEMATOCRIT 28.2 % (42.0-52.0); LYMPH # 0.5 10^3/uL (1.5-5.0); LYMPH % 7.4 % (24.0-44.0); MEAN CORPUSCULAR HEMOGLOBIN 31.3 pg (27.0-33.0); MEAN CORPUSCULAR HGB CONC 31.9 g/dl (32.0-36.5); MEAN CORPUSCULAR VOLUME 97.9 fl (80.0-96.0); MONO # 0.1 10^3/uL (0.0-0.8); NEUTROPHILS # 5.9 10^3/uL (1.5-8.5); NEUTROPHILS % 89.1 % (36.0-66.0); RED BLOOD COUNT 2.88 10^6/uL (4.30-6.10); WHITE BLOOD COUNT 6.6 10^3/uL (4.0-10.0)
[2019-12-07 05:05] LABS: PLATELET COUNT, AUTOMATED 31 10^3/uL (150-450)
[2019-12-07 05:26] LABS: ALBUMIN 1.8 GM/DL (3.2-5.2); ALT/SGPT 62 U/L (12-78); BILIRUBIN,TOTAL 2.4 MG/DL (0.2-1.0); BLOOD UREA NITROGEN 25 MG/DL (7-18); CALCIUM LEVEL 8.4 MG/DL (8.5-10.1); CARBON DIOXIDE LEVEL 30 MEQ/L (21-32); CHLORIDE LEVEL 104 MEQ/L (98-107); CREATININE FOR GFR 0.68 MG/DL (0.70-1.30); GLOMERULAR FILTRATION RATE > 60.0 (>56); GLUCOSE, FASTING 119 MG/DL (70-100); POTASSIUM SERUM 4.1 MEQ/L (3.5-5.1); SODIUM LEVEL 140 MEQ/L (136-145); TOTAL PROTEIN 4.9 GM/DL (6.4-8.2)
[2019-12-07] MEDS: predniSONE 10 MG TAB PO SCH (08:12)
[2019-12-07] MEDS ORDERED: ACETAMINOPHEN TAB 650MG DOSE (2X325MG) PO PRN (09:00)
--- NOTE | 2019-12-07 10:48 | IPNPDOC ---
Subjective Date Seen The patient was seen on 12/07/19. Subjective Chief Complaint/HPI He is concerned today about protrusion of bowel at his ileostomy site. No symptoms of obstruction or back pressure, no bleeding. Says he is getting an ulcer at lateral margin of his wafer due to some leakage. Constitutional: Denies: Chills ENT: Denies: Head Aches Pulmonary: Denies: Dyspnea, Cough Cardiovascular: Denies: Chest Pain, Palpitations Gastrointestinal: Reports: Diarrhea; Denies: Nausea, Vomiting Genitourinary: Denies: Dysuria Hematologic: Denies: Bruising, Petecchia Endocrine: Reports: Polydipsia (Feels thirsty) Neurological: Denies: Weakness Psych: Reports: Mood Normal Objective Physical Examination General Exam: Positive: Alert, Cooperative, No Acute Distress (laying in bed playing on social media when I entered the room) Eye Exam: Positive: Conjunctiva & lids normal; Negative: Sclera icteric ENT Exam: Negative: Mucous membr. moist/pink (slightly dry) Neck Exam: Negative: Lymphadenopathy Chest Exam: Positive: Clear to auscultation, Normal air movement Heart Exam: Positive: Rate Normal, Normal S1, Normal S2; Negative: Murmurs Telemetry: Positive: No significant arrhythmia Abdomen Exam: Positive: Normal bowel sounds, Soft, Other (Large out put. about 3 cm of protruding non bleeding bowel noted.) Extremity Exam: Negative: Clubbing, Edema Skin Exam: Positive: Nl turgor and temperature Neuro Exam: Positive: Normal Gait, Normal Speech Psych Exam: Positive: Mood NL, Oriented x 3 Assessment /Plan Problems (1) Hypotension Response to Treatment: Stable, Improving Discussed With: Nurse, Roadway Designer, Patient Problem Specific Plan: Monitor Clinically, Repeat Labs Problem Text: 12/07: BP seems adequate. Continues with IV fluids, TPN (without lipids). His BP is very sensitive to his fluid inputs. I have ordered for him to get a total of 275cc/hr and nursing will adjust around the TPN rate to maintain this total. While this seems like a lot his sodium was elevated (I believe from volume contraction) and his urine remains very dark indicating that he is total body dry. We do NOT have accurate I/O as he dumps his own ostomy device and is not measuring it for the nurses. (2) Gram-negative sepsis Problem Text: 12/07: identified K pneumonia in blood culture. Would be sensitive to 1st gen cephalosporin so will change from Zosyn (can contribute to thrombocytopenia). The lab clarified that he is growing gram-negative organisms from at least one of his BCx. We are waiting on the final speciation and sensitivity. I agree with Dr. Gong, I believe he has sepsis, but I do not believe his hypotension is septic shock. He remains on Zosyn which was started for empiric treatment of an ascending cholangitis. If we the MRSA screen comes back positive we should cover for MRSA too, but I stopped the vancomycin (that was started on the spurious information I received that the cx was growing gram-positives) for now. (3) Acquired short bowel syndrome Status: Chronic Discussed With: Patient Problem Specific Plan: Monitor Clinically, Repeat Labs Problem Text: 12/07: Patient again asking for tranfer to care of his surgeon Dr. Pagan. Placed a call to her office and to Transfer Center at [facility]. Fito cho for call back. C diff testing was negative so will try Lomotil/Imodium but suspect he will need Gattex for control. He has short gut syndrome with a high output ileostomy. The patient is focused on getting his ostomy reversed. His surgical team will call back tomorrow if they want him transferred in consideration for an earlier procedure. In the mean time, we should consider adding the Lomotil and Imodium per his surgeon's recommendations (see HPI) ONCE we can verify that he does not have C. diff. If this does not work for him, I would suggest he consider Gattex (teduglutide) to help improve his absorptive capacity and decrease the need for the high volume nutrition and hydration. He didn't want to hear from me about alternatives to having his ostomy reversed, but I pointed out that even if he is reconnected he could have a higher output situation and this still may be needed. (4) Crohn's disease Status: Chronic Problem Text: 12/07: History of allergy to Humira. Per his history no other disease modifying agent has been started. He has had a couple of bowel resections based on the Crohn's. The most recent o ne was in September 2018 done at [facility] in [place]. This is the underlying cause of his short gut syndrome. It is possible that, in starting to taper his steroids off for his reanastomosis, his Crohn's disease flared. (5) On total parenteral nutrition Problem Text: He is on TPN at home infused through a PICC via his surgeon in [place]. We are continuing TPN while here. (6) Thrombocytopenia Response to Treatment: Stable Problem Text: 12/07 Multiple potential etiologies including Heparin induced antiplatelet antibodies. His platelets dropped today. He is not bleeding and is still not in a dangerous range. I suspect it's related to his acute illness. We'll monitor for now. (7) Hyperbilirubinemia Status: Acute Response to Treatment: Improving Problem Specific Plan: Repeat Labs Problem Text: His bilirubin is improving. Initially we thought this might be related to ascending cholangitis, but now I am leading toward parenteral nutrition associated cholestasis. We'll continue to monitor. (8) Transaminitis Status: Acute Response to Treatment: Improving Problem Specific Plan: Repeat Labs Problem Text: His liver enzymes are improving. Initially we were leaning toward ascending cholangitis, but now I think it's more likely parenteral nutrition associated cholestasis. We'll continue to monitor. (9) Macrocytic anemia Status: Chronic Problem Specific Plan: Repeat Tests Problem Text: He has a mild macrocytic anemia. Will order B12 and folate levels to see if he needs additional supplementation of these micronutrients. (10) Adrenal insufficiency Status: Resolved Response to Treatment: Improving Discussed With: Patient Problem Specific Plan: Monitor Clinically Problem Text: 12/07 on prednisone 10mg daily now Over the last 24h he demonstrated that his BP is exquisitely sensitive to fluids and this makes adrenal insufficiency less likely as the cause of his hypotension. I stopped the hydrocortisone and put him back on the prednisone 10mg that he was taking before the change. Plan/VTE VTE Prophylaxis Ordered?: No VTE Exclusion Mechanical Proph: Other (pt very active around the room) VTE Exclusion Pharmacological: Thrombocytopenia VS, I&O, 24H, Fishbone Vital Signs/I&O Vital Signs Date Time Temp Pulse Resp B/P (MAP) Pulse Ox O2 Delivery O2 Flow Rate FiO2 12/07/19 10:00 100.7 115 20 94 Room Air 12/07/19 09:52 114/72 6.0 I&O- Last 24 Hours up to 6 AM 12/07/19 06:00 Intake Total 70796 ml Output Total 850 ml Balance 9397 ml Laboratory Data 24H LABS Laboratory Tests 2 12/06/19 13:34: Bedside Glucose (Misc Panel) 179H 12/06/19 17:33: Bedside Glucose (Misc Panel) 114H 12/06/19 21:24: Methicillin-Resist S.aureus DNA PCR NOT DETECTED 12/06/19 22:00: Clostridium difficile [id number] PRESUMPTIVE NEGATIVE, Clostridium difficile Toxin (PCR) NEGATIVE 12/07/19 01:59: Bedside Glucose (Misc Panel) 138H 12/07/19 04:44: Immature Granulocyte % (Auto) 0.9, Neutrophils (%) (Auto) 89.1H, Lymphocytes (%) (Auto) 7.4L, Monocytes (%) (Auto) 2.0, Eosinophils (%) (Auto) 0.6, Basophils (%) (Auto) 0.0, Neutrophils # (Auto) 5.9, Lymphocytes # (Auto) 0.5L, Monocytes # (Auto) 0.1, Eosinophils # (Auto) 0.0, Basophils # (Auto) 0.0, Nucleated Red Blood Cells % (auto) 0.0, Anion Gap 6L, Glomerular Filtration Rate > 60.0, Calcium Level 8.4L, Total Bilirubin 2.4H, Aspartate Amino Transf (AST/SGOT) 22, Alanine Aminotransferase (ALT/SGPT) 62, Alkaline Phosphatase 133H, Total Protein 4.9L, Albumin 1.8L, Albumin/Globulin Ratio 0.58L 12/07/19 10:22: CBC/BMP Laboratory Tests 12/06/19 20:04 12/07/19 04:44 Microbiology Microbiology 12/05/19 Blood Culture - Preliminary, Resulted 12/05/19 Blood Culture - Preliminary, Resulted No growth after 24 hours . All specim... 12/04/19 Blood Culture - Preliminary, Resulted No Growth after 48 hours. All Specime... 12/04/19 Blood Culture - Preliminary, Resulted No Growth after 48 hours. All Specime... 12/03/19 Blood Culture - Final, Complete Klebsiella Pneumoniae 12/03/19 Respiratory Virus Panel (PCR) ([facility]) - Final, Complete 12/03/19 Blood Culture - Preliminary, Resulted No Growth after 72 hours. All specime... Darian Hall MD Dec 07, 2019 10:48
[2019-12-07] MEDS: ceFAZolin SOD 1 GM in D5W MINI-BAG PLUS 50 ML IV SCH ×2 (12:53→19:35)
[2019-12-07 12:55] LABS: VITAMIN B12 LEVEL 762 PG/ML (247-911)
[2019-12-07] MEDS: LOMOTIL 2.5MG/0.025MG TABLET PO SCH ×3 (13:45→23:15)
[2019-12-07 14:23] LABS: PLTBLUE- EDTA FREE CALC 22 K/mm3 (172-450)
[2019-12-07 14:28] LABS: PLTBLUE- EDTA FREE MACHINE 20 10^3/uL (172-450)
[2019-12-07 14:40] LABS: INR 1.02; PROTHROMBIN TIME 13.1 SECONDS (11.8-14.0)
[2019-12-07 17:16] LABS: HEPATITIS A ANTIBODY IGM NEGATIVE (NEGATIVE); HEPATITIS B CORE ANTIBODY IGM NEGATIVE (NEGATIVE); HEPATITIS B SURFACE ANTIGEN NEGATIVE (NEGATIVE); HEPATITIS C VIRUS ABY INDEX < 0.0 INDEX (<0.8); HIV 1&2 SCREEN CENTAUR NEGATIVE (NEGATIVE)
--- NOTE | 2019-12-07 17:36 | IPN ---
DATE: 12/07/2019 NOTE: Mr. Aly generally does not feel "himself" today but has no specific complaints. He denies dizziness or lightheadedness. No chest pain or pressure. He still continues to have significant high output failure. He is again requesting transfer to [facility]. No other concerns expressed. OBJECTIVE: GENERAL: Mr. Aly is sitting on the side of the bed, in no acute distress. He can complete full sentences. No cough throughout the evaluation. VITAL SIGNS: Temperature 102.3, pulse 103, respiratory rate 20, blood pressure 114/72 with a mean arterial pressure (MAP) of 86, SPO2 94% on room air. HEENT: Anicteric. Nares: Patent bilaterally. Oropharynx clear, moist mucosa (improved). NECK: Supple, without jugular venous distention (JVD), without thyromegaly or masses. Trachea is midline. LYMPHATICS: Without cervical or supraclavicular lymphadenopathy. LUNGS: Symmetric excursion, good air entry. No wheeze, rhonchi or crackle on tidal excursion. Normal I:E. No accessory muscle usage or retractions. CARDIOVASCULAR: Tachycardiac, regular rhythm, normal S1, S2. No murmur, rub, or gallop appreciated. ABDOMEN: Positive bowel sounds, soft, decreased tenderness, ostomy patent. EXTREMITIES: Without clubbing, cyanosis or edema. Palpable pedal pulses bilaterally. LABORATORY DATA: CBC from this morning showed a hemoglobin of 9, hematocrit 28.2, platelet count 31,000, white blood cell count 6600 with a differential of 89% neutrophils and 7% lymphocytes. Chemistry shows sodium 140, potassium 4.1, chloride 104, bicarbonate 38, anion gap 6, BUN 25, creatinine 0.7, glucose 119, calcium 8.4, total bilirubin 2.4, AST 22, ALT 62, alkaline phosphatase 133, total protein 4.9, albumin 1.8. INR 1.02, fibrinogen 461. Heparin-induced antibodies pending. Hepatitis antigens pending. MRSA from 12/06/2019 was not detected. IMPRESSION: 1. Hypotension, felt secondary to high output colostomy. He appears to do well when he receives IV fluids at 275 mL an hour. 2. Sepsis. He has had intermittent rigors and has had a Gram-positive peyton that was identified as Klebsiella pneumoniae in one of his blood cultures. No source identified. 3. Thrombocytopenia, unknown etiology. Differential includes secondary to heparin (he has been flushing his line with heparin at home), Zosyn (may contribute to the difficulties but he had thrombocytopenia before this medication was started), or versus other number. 4. Elevated liver functions, improving, felt likely secondary to total parenteral nutrition (TPN) though differential would have to include infectious or other. 5. Crohn's disease, status post terminal ileum resection in early to mid September 2019 with high output colostomy. The plan is to reconnect his intestines in the future. His prednisone is being weaned off for that surgery. RECOMMENDATIONS: 1. Agree with consulting infectious disease (ID) for recommendations regarding his recurrent fevers. 2. Agree with discontinuing Zosyn and starting a different antibiotic aimed at Klebsiella. 3. Heparin antibody has been sent. 4. I would not transfuse platelets unless his total count was less than 10,000 or he had active bleeding. At this point, the intensive care service does not have anything further to add and agree was transferred to progressive care unit (PCU). Thank you for this consultation.
[2019-12-07] MEDS ORDERED: FAT EMULSION IV 20% 500 ML IV SCH (18:00)
[2019-12-07] MEDS: AMINO AC/ELECTROLYTE/DEX/CALC 1,000 ML IV SCH (18:57)
--- NOTE | 2019-12-07 19:00 | CR ---
DATE OF CONSULTATION: 12/04/2019 This is a 59-year-old white male who was admitted to [facility] ([facility]) for a history of two days of shaking chills, nausea, and vomiting. The patient denies any complaints of abdominal pain. He has had a bowel resection and has a colostomy from surgery back in September of 2019 for his Crohn's disease. The patient transferred his care from practice in 2016 to [facility] for further tertiary care, evaluation and treatment. No complaints of bleeding from the ostomy. No weight loss. He apparently was treated with Humira which he failed. He has not been started on a new of biologic since his surgery. The patient presents here now with fevers and apparently abnormal liver functions. The concern is that the patient may be having a bout of ascending cholangitis which may be triggering his fevers and shaking chills. REVIEW OF SYSTEMS: 12-point review of systems was negative except for as listed in the history of present illness. PAST MEDICAL HISTORY: Positive for: 1. Crohn's disease status post resection of the small bowel and right colon in September of 2019. 2. The patient is chronic total parenteral nutrition (TPN) since. 3. The patient is status post lumbar laminectomy. 4. Past reconstruction of the left elbow. 5. Status post repair of a ruptured Achilles tendon. SOCIAL HISTORY: The patient is a former cigarette smoker and uses medical marijuana. Family history: 1. Positive for coronary artery disease. 2. Cancer. 3. Chronic obstructive pulmonary disease (COPD). 4. Diabetes. MEDICATIONS: As above. PHYSICAL EXAMINATION: GENERAL: This is a well-developed, well-nourished, white male in no obvious acute distress, appears stated age. CHEST: Clear to auscultation. CARDIOVASCULAR: Showed a regular rhythm. No murmurs or gallops. Normal physiological split, S1, S2. ABDOMEN: Soft, positive colostomy bag on the right side with a high output of stool. EXTREMITIES: No cyanosis, clubbing, or edema. Jose's negative. LABORATORY STUDIES: On admission showed a white count of 8100, hemoglobin and hematocrit 11.4 and 34.5, and platelets of 68,000. The patient's chemistry on admission was somewhat concerning with a total bilirubin 3.9, AST 72, ALT is 148, and the alkaline phosphatase was 162 with albumin of 2.4. His INR was normal 0.96. IMAGING STUDIES: Including abdominal CT on 12/03/2019 showed: 1. Stenosis of the central spinal cord. 2. Gallbladder was incompletely distended. 3. The patient has some question of prominent hepatic arteries which was felt to possibly be related to cirrhosis of the liver. 4. The patient has dilated mid common bile duct, measuring about 14 mL and apparently tapering into the ampulla. There was no significant intrahepatic dilatation. The patient had an MRCP on 12/04/2019 which was interpreted by Dr. Sumner as showing an unremarkable MRCP with no evidence of choledocholithiasis. ANALYSIS: 1. Shaking chills, fevers with abnormal liver function tests of unclear etiology. 2. Crohn's disease status post bowel resection with a definite temporary right loop ostomy. 4. History of spinal stenosis. At this time, the plan will be to recommend that the patient be maintained on IV antibiotics to control any possibility for bacteremia or sepsis. After discussion, the patient has been on total parenteral nutrition (TPN) since September 2019 and has an abnormal liver functions back in September of 2019. The patient has apparently developed a cholestatic pattern from his TPN and with an magnetic resonance cholangiopancreatography (MRCP) being negative, we are now ruling out that the patient is developing ascending cholangitis. PLAN: 1. Maintain IV antibiotics. 2. The patient should be considered to be started on a new biologic such as Entyvio to attempt to control his disease once he is cleared surgically. 3. The patient will have to eventually have his loop ostomy reversed. 4. Recommendations have made by the marketing project manager for a new drug that was approved in March of 2019, Gattex, which is a drug for short bowel syndrome. This may help to reduce his high output from his ostomy. 5. The patient has been advised to followup with [facility] as an outpatient.
[2019-12-07] MEDS: **NOTE PATIENT COMMENT** MISC XX SCH (21:00)
[2019-12-08] VITALS: BP 112/73
[2019-12-08] MEDS: POTASSIUM CHLORIDE INJ 30 MEQ in LR 1,000 ML IV SCH ×4 (01:19→18:39)
[2019-12-08] MEDS: MORPHINE 4 MG/ML 1ML VIAL/SYRINGE (J2270) IV PRN ×5 (01:20→11:16)
[2019-12-08 04:00] VITALS: BP 103/62
[2019-12-08] MEDS: ceFAZolin SOD 1 GM in D5W MINI-BAG PLUS 50 ML IV SCH ×3 (04:15→20:35)
[2019-12-08] MEDS: AMINO AC/ELECTROLYTE/DEX/CALC 1,000 ML IV SCH ×2 (05:50→18:39)
[2019-12-08] MEDS: LOMOTIL 2.5MG/0.025MG TABLET PO SCH ×4 (05:50→22:56)
--- NOTE | 2019-12-08 07:08 | CR ---
DATE OF CONSULTATION: 12/07/2019 REFERRING PHYSICIAN: Dr. Hall. REASON FOR CONSULTATION: Evaluation of gram-negative bacteremia with Klebsiella pneumoniae and persistent fever after 48 hours of antibiotic. HISTORY OF PRESENT ILLNESS: Mr. Aly is a pleasant 59-year-old gentleman with a history of Crohn's disease, currently total parenteral nutrition (TPN) dependent because of high output ileostomy. The patient presented to the emergency room with complaints of fever with chills of two days duration and one episode of emesis. The patient denied having any abdominal pain. He had an ileostomy and a bowel obstruction in September 2019. He had surgery done at [facility] under the care of the [facility] under the care of Dr. Pagan, a [place] colorectal surgeon. The patient was supposed to have a reversal of his ileostomy in the upcoming months. He denies any cough or shortness of breath. He has no flank pain, dysuria, hematuria. He does have sometimes episodes of frequency. He had some blurry vision of the left eye after a fall about a week prior to admission. He does not know why he fell. PAST MEDICAL HISTORY: His past medical history is significant for: 1. Crohn's disease status post bowel resection on two different occasions due to bowel obstruction done in [facility], on TPN due to high output ileostomy since September when the PICC line was placed. 2. Cervical and lumbar spinal stenosis. 3. Osteoarthritis. PAST SURGICAL HISTORY: 1. Lumbar laminectomy. 2. Reconstruction left elbow. 3. Repair of Achilles tendon SOCIAL HISTORY: Quit smoking. Uses medical marijuana. He lives alone. He had eight kids but they are not in the area. FAMILY HISTORY: Family history of coronary artery disease, cancer, chronic pulmonary obstructive disease (COPD) and diabetes. ALLERGIES: SULFA causing swelling. REVIEW OF SYSTEMS: The patient had fever and shaking chills, weakness due to hypotension. He had one episode of nausea that has resolved. No vomiting or diarrhea. He complains of dry mouth. No cough or shortness of breath. No upper or lower extremity weakness. LABORATORY DATA: On admission his white count was 8.1, hemoglobin 9, hematocrit 28.2, platelets 31, 89% neutrophils, 7% lymphocytes, 2% monocytes. Sodium 140, potassium 4.1, chloride 104, bicarb 30, BUN 25, creatinine 0.68, glucose 119, calcium 8.4, bilirubin 2.4, AST 22, ALT 62, alkaline phosphatase 133, albumin 1.8, vitamin B12 762 and folate 10. Heparin-induced antibodies are pending. C-diff was negative on 12/06. Hepatitis A, B and C, HIV serology are pending. MRSA screen was negative. TB Gold done on August 2018 was negative. Blood cultures on 12/03: One out of two was positive for Klebsiella pneumoniae. 12/04 two sets were negative, 12/05 blood cultures positive again, Klebsiella resistant only to ampicillin. X-RAYS: Abdominal MRI shows unremarkable Magnetic Resonance Cholangiopancreatography (MRCP). No evidence of choledocholithiasis. CT of the abdomen and pelvis done on 12/03 shows moderate central spinal canal stenosis at L2, L3, L4, L5 right posterior disk protrusion. The gallbladder is incompletely distended. This could be related to fasting. Prominent hepatic arteries, questionable cirrhosis, dilated common bile duct. No history of the liver cirrhosis. 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 No aortic dissection, no chronic pulmonary obstructive disease (COPD). No pneumonia. Chest x-ray shows no active disease. PHYSICAL EXAMINATION General: On physical exam he is a frail looking gentleman in no acute distress. Vital signs: Temperature is 99.6, pulse 67, respirations 20, blood pressure 85/57, O2 sat 96% on room air. Temperature maximum ( T-max) today was 100.7. Heart: Normal S1-S2. No murmurs appreciated. Lungs: Clear. No wheezes, rales or rhonchi. Abdomen: Soft with a large ileostomy in the right lower quadrant. The ileum looks swollen and erythematous. Back: No CVA or lumbosacral tenderness. Extremities: No clubbing, cyanosis or edema. No calf tenderness. Peripherally inserted center catheter (PICC) line in the left arm with no tenderness, no drainage. Neurologic: Exam alert, oriented times three. Normal motor strength. Joints of all normal range of motion. IMPRESSION: This is a 59-year-old gentleman who was admitted with Klebsiella bacteremia, fever, chills without any other source of infection. He has persistent bacteremia after 48 hours in spite of being on appropriate IV antibiotics, initially with Zosyn for the past three days, a total of 10 doses of antibiotic. He is currently switched to cefazolin 1 gram every 8 hours. The patient's source of infection is most likely an inter luminal line infection. The patient does not have any abdominal symptoms to suggest that be the source of infection and from translocation but I suspect it is line infection. PLAN: Remove the PICC line, put peripheral IVs, use total parenteral nutrition (TPN) for the next 48 hours. Repeat blood cultures in the morning and hopefully the patient could have a new PICC line placed on Saturday for his TPN to be resumed, He is adamant on going to his appointments in [place] on Saturday at 04:00 p.m. Hopefully this could be arranged. He will need home IV antibiotic as his absorption of oral medication is questionable. He could probably be discharged home on IV Rocephin 2 grams every 24 hours to finish the course of treatment instead of cefazolin which would be every 8 hours and he has no help to do his antibiotics. The patient is also TPN and IV fluid dependent and receives IV fluid over 24 hour period. On Saturday when his PICC line is scheduled he should have a dual lumen PICC line. SULEMAN
[2019-12-08 08:00] VITALS: BP 100/62
[2019-12-08] MEDS: predniSONE 10 MG TAB PO SCH (08:40)
[2019-12-08 10:00] LABS: HEMATOCRIT 32.1 % (42.0-52.0); HEMOGLOBIN 10.2 g/dl (13.5-17.5); MEAN CORPUSCULAR HEMOGLOBIN 31.5 pg (27.0-33.0); MEAN CORPUSCULAR HGB CONC 31.8 g/dl (32.0-36.5); MEAN CORPUSCULAR VOLUME 99.1 fl (80.0-96.0); PLATELET COUNT, AUTOMATED 42 10^3/uL (150-450); RED BLOOD COUNT 3.24 10^6/uL (4.30-6.10); WHITE BLOOD COUNT 8.2 10^3/uL (4.0-10.0)
[2019-12-08 10:16] LABS: LYMPHOCYTES 23 % (16-44); MONOCYTES 1 % (0-5); NEUTROPHILS 75 % (28-66)
[2019-12-08 10:17] LABS: PLATELET ESTIMATE MARKED DECREASE (NORMAL)
[2019-12-08 10:25] LABS: ALBUMIN 2.1 GM/DL (3.2-5.2); ALT/SGPT 77 U/L (12-78); BLOOD UREA NITROGEN 23 MG/DL (7-18); CALCIUM LEVEL 9.2 MG/DL (8.5-10.1); CARBON DIOXIDE LEVEL 38 MEQ/L (21-32); CHLORIDE LEVEL 98 MEQ/L (98-107); CREATININE FOR GFR 0.68 MG/DL (0.70-1.30); GLOMERULAR FILTRATION RATE > 60.0 (>56); GLUCOSE, FASTING 106 MG/DL (70-100); SODIUM LEVEL 140 MEQ/L (136-145); TOTAL PROTEIN 5.7 GM/DL (6.4-8.2)
--- NOTE | 2019-12-08 11:10 | IPNPDOC ---
Subjective Date Seen The patient was seen on 12/08/19. Subjective Chief Complaint/HPI alert, cooperative. requiring frequent morphine doses. not clear why this should be necessary. Constitutional: Denies: Chills Eyes: Denies: Pain Pulmonary: Denies: Dyspnea Cardiovascular: Denies: Chest Pain Gastrointestinal: Denies: Nausea, Diarrhea (continues with high output from ileostomy but no rectal discharge) Neurological: Denies: Weakness Psych: Reports: Mood Normal Objective Physical Examination General Exam: Positive: Alert, Cooperative, No Acute Distress (laying in bed playing on social media when I entered the room) Eye Exam: Positive: Conjunctiva & lids normal; Negative: Sclera icteric ENT Exam: Negative: Mucous membr. moist/pink (slightly dry) Neck Exam: Negative: Lymphadenopathy Chest Exam: Positive: Clear to auscultation, Normal air movement Heart Exam: Positive: Rate Normal, Normal S1, Normal S2; Negative: Murmurs Telemetry: Positive: No significant arrhythmia Abdomen Exam: Positive: Normal bowel sounds, Soft, Other (Large out put. about 3 cm of protruding non bleeding bowel noted.) Extremity Exam: Negative: Clubbing, Edema Skin Exam: Positive: Nl turgor and temperature Neuro Exam: Positive: Normal Gait, Normal Speech Psych Exam: Positive: Mood NL, Oriented x 3 Assessment /Plan Problems (1) Hypotension Response to Treatment: Stable, Improving Discussed With: Nurse, Undercollar Baster, Patient Problem Specific Plan: Monitor Clinically, Repeat Labs Problem Text: 12/08: switched to peripheral parenteral nutrition pending new PICC. Old one was presumed contaminated and removed at rec of ID. 12/07: BP seems adequate. Continues with IV fluids, TPN (without lipids). His BP is very sensitive to his fluid inputs. I have ordered for him to get a total of 275cc/hr and nursing will adjust around the TPN rate to maintain this total. While this seems like a lot his sodium was elevated (I believe from volume contraction) and his urine remains very dark indicating that he is total body dry. We do NOT have accurate I/O as he dumps his own ostomy device and is not measuring it for the nurses. (2) Gram-negative sepsis Problem Text: 12/08: old PICC removed. plan per Dr. Rodriguez is if prelim cultures are neg in am then replace PICC to facilitate patient demand to be discharged in order to make his appt with his surgeon in [place] tomorrow afternoon. 12/07: identified K pneumonia in blood culture. Would be sensitive to 1st gen cephalosporin so will change from Zosyn (can contribute to thrombocytopenia). The lab clarified that he is growing gram-negative organisms from at least one of his BCx. We are waiting on the final speciation and sensitivity. I agree with Dr. Gong, I believe he has sepsis, but I do not believe his hypotension is septic shock. He remains on Zosyn which was started for empiric treatment of an ascending cholangitis. If we the MRSA screen comes back positive we should cover for MRSA too, but I stopped the vancomycin (that was started on the spurious information I received that the cx was growing gram-positives) for now. (3) Acquired short bowel syndrome Status: Chronic Discussed With: Patient Problem Specific Plan: Monitor Clinically, Repeat Labs Problem Text: 12/07: Patient again asking for tranfer to care of his surgeon Dr. Pagan. Placed a call to her office and to Transfer Center at [facility]. Waiting for call back. C diff testing was negative so will try Lomotil/Imodium but suspect he will need Gattex for control. He has short gut syndrome with a high output ileostomy. The patient is focused on getting his ostomy reversed. His surgical team will call back tomorrow if they want him transferred in consideration for an earlier procedure. In the mean time, we should consider adding the Lomotil and Imodium per his surgeon's recommendations (see HPI) ONCE we can verify that he does not have C. diff. If this does not work for him, I would suggest he consider Gattex (teduglutide) to help improve his absorptive capacity and decrease the need for the high volume nutrition and hydration. He didn't want to hear from me about alternatives to having his ostomy reversed, but I pointed out that even if he is reconnected he could have a higher output situation and this still may be needed. (4) Crohn's disease Status: Chronic Problem Text: 12/08: Appreciate Dr. Bhandari's note and recommendation. Patient believes that his surgeon will want him to wait until after his ileostomy is reversed before starting a new biologic agent for control of his Crohn's. 12/07: History of allergy to Humira. Per his history no other disease modifying agent has been started. He has had a couple of bowel resections based on the Crohn's. The most recent one was in September 2018 done at [facility] in [place]. This is the underlying cause of his short gut syndrome. It is possible that, in starting to taper his steroids off for his reanastomosis, his Crohn's disease flared. (5) On total parenteral nutrition Problem Text: 12/08: plan will be to place new PICC tomorrow am and resume maintenance fluids and TPN at discharge. He is on TPN at home infused through a PICC via his surgeon in [place]. We are continuing TPN while here. (6) Thrombocytopenia Response to Treatment: Stable Problem Text: 12/08 platelet better today at 41K. 12/07 Multiple potential etiologies including Heparin induced antiplatelet antibodies. His platelets dropped today. He is not bleeding and is still not in a dangerous range. I suspect it's related to his acute illness. We'll monitor for now. (7) Hyperbilirubinemia Status: Acute Response to Treatment: Improving Problem Specific Plan: Repeat Labs Problem Text: His bilirubin is improving. Initially we thought this might be related to ascending cholangitis, but now I am leading toward parenteral nutrition associated cholestasis. We'll continue to monitor. (8) Transaminitis Status: Acute Response to Treatment: Improving Problem Specific Plan: Repeat Labs Problem Text: His liver enzymes are improving. Initially we were leaning toward ascending cholangitis, but now I think it's more likely parenteral nutrition associated cholestasis. We'll continue to monitor. (9) Macrocytic anemia Status: Chronic Problem Specific Plan: Repeat Tests Problem Text: He has a mild macrocytic anemia. Will order B12 and folate levels to see if he needs additional supplementation of these micronutrients. (10) Adrenal insufficiency Status: Resolved Response to Treatment: Improving Discussed With: Patient Problem Specific Plan: Monitor Clinically Problem Text: 12/07 on prednisone 10mg daily now Over the last 24h he demonstrated that his BP is exquisitely sensitive to fluids and this makes adrenal insufficiency less likely as the cause of his hypotension. I stopped the hydrocortisone and put him back on the prednisone 10mg that he was taking before the change. Plan/VTE VTE Prophylaxis Ordered?: No VTE Exclusion Mechanical Proph: Other (pt very active around the room) VTE Exclusion Pharmacological: Thrombocytopenia Plan Anticipated Discharge: Home, Home With Services VS, I&O, 24H, Fishbone Vital Signs/I&O Vital Signs Date Time Temp Pulse Resp B/P (MAP) Pulse Ox O2 Delivery O2 Flow Rate FiO2 12/08/19 08:50 98.3 57 16 100/62 100 Room Air 6.0 94 I&O- Last 24 Hours up to 6 AM 12/08/19 06:00 Intake Total 24073 ml Output Total 4270 ml Balance 6894 ml Laboratory Data 24H LABS Laboratory Tests 2 12/07/19 13:57: Platelet Count, EDTA Free 22*L, Prothrombin Time 13.1, Prothromb Time International Ratio 1.02, Fibrinogen 461H 12/07/19 13:58: Differential Slide Review Report, Peripheral Blood Smear Path Consult PERIPHERAL SMEAR 12/08/19 09:42: Nucleated Red Blood Cells % (auto) 0.0, Neutrophils 75H, Band Neutrophils 1, Lymphocytes (Manual) 23, Monocytes (Manual) 1, Platelet Estimate MARKED DECREASE, Immature Platelet Fraction 12.0H 12/08/19 09:43: Anion Gap 4L, Glomerular Filtration Rate > 60.0, Calcium Level 9.2, Total Bilirubin 3.0H, Aspartate Amino Transf (AST/SGOT) 42H, Alanine Aminotransferase (ALT/SGPT) 77, Alkaline Phosphatase 175H, Total Protein 5.7L, Albumin 2.1L, Albumin/Globulin Ratio 0.58L CBC/BMP Laboratory Tests 12/08/19 09:42 12/08/19 09:43 Microbiology Microbiology 12/08/19 Blood Culture, Received Pending 12/08/19 Blood Culture, Received Pending 12/05/19 Blood Culture - Final, Complete Klebsiella Pneumoniae 12/05/19 Blood Culture - Preliminary, Resulted No Growth after 48 hours. All Specime... 12/04/19 Blood Culture - Preliminary, Resulted No Growth after 72 hours. All specime... 12/04/19 Blood Culture - Preliminary, Resulted No Growth after 72 hours. All specime... 12/03/19 Blood Culture - Final, Complete Klebsiella Pneumoniae 12/03/19 Respiratory Virus Panel (PCR) ([facility]) - Final, Complete 12/03/19 Blood Culture - Preliminary, Resulted No Growth after 72 hours. All specime... Darian Hall MD Dec 08, 2019 11:10
[2019-12-08 12:00] VITALS: BP 94/62
[2019-12-08] MEDS: oxyCODONE 5MG TAB PO PRN ×3 (15:16→22:56)
[2019-12-08 16:00] VITALS: BP 107/70
[2019-12-08] MEDS ORDERED: FAT EMULSION IV 20% 500 ML IV ONE (18:00)
--- NOTE | 2019-12-08 18:11 | IPNPDOC ---
Subjective Date Seen The patient was seen on 12/08/19. Subjective Chief Complaint/HPI Follow up of evaluation of gram-negative bacteremia with Klebsiella pneumoniae and persistent fever from prior 48 hours, today status post removal of left PICC line. Mr Aly is a 59 year-old man with a history of Crohn's disease. Was seen yest ren as a consult request to Dr Rodriguez for evaluation of gram-negative bacteremia with Klebsiella pneumonia and persistent after 48 hours of antibiotic. He presented to the ED with complaints of fever and chills for two days and an episode of emesis. Pt had an ileostomy and a bowel obstruction in Sep 2019. This surgery was done at [facility] by Dr Pagan, a [place] colorectal surgeon. Pt was supposed to have a reversal of his ileostomy in the coming months. Today pt is status post removal of PICC line from left arm because of suspicion that it was the source of infection. Pt is improved- denies headache, nausea, vomiting, cough, SOB, flank pain, dysuria, and hematuria. He is hopeful and optimistic regarding discharge tomorrow so he can go to [place] to meet with the colorectal surgery team that will be doing the ileostomy reversal. Events since last encounter Remove the PICC line, put peripheral IVs, use total parenteral nutrition (TPN) for the next 48 hours and repeat blood cultures- results are pending. General: Denies: Chills, Night Sweats, Fatigue, Malaise Constitutional: Denies: Chills, Fever, Night Sweats Eyes: Denies: Pain, Vision change ENT: Denies: Head Aches, Ear Pain, Dysphagia Skin: Denies: Rash, Lesions, Breakdown Pulmonary: Denies: Dyspnea, Cough Cardiovascular: Denies: Chest Pain, Palpitations, Orthopnea, Paroxysmal Noc. Dyspnea, Lt Headedness Gastrointestinal: Reports: Other Symptoms (Ileostomy bag has been filling more frequently and the small bowel is less protruding) Genitourinary: Denies: Dysuria, Frequency, Incontinence, Retention Hematologic: Denies: Bruising, Bleeding Excessively Musculoskeletal: Denies: Neck Pain, Back Pain, Joint Pain, Muscle Pain, Spasms Neurological: Denies: Weakness, Numbness, Change in speech, Confusion Psych: Reports: Mood Normal; Denies: Depression, Memory Issues Objective Physical Examination General Exam: Positive: Alert, Cooperative, No Acute Distress (laying in bed talking to the nurses) Eye Exam: Positive: Conjunctiva & lids normal; Negative: PERRLA, EOMI, Sclera icteric, Ptosis, Other Eye Symptoms ENT Exam: Negative: Atraumatic, Mucous membr. moist/pink (slightly dry), Pharynx Normal, Tongue Midline, Pharyngeal Edema, Nares Patent, Tympanic Membranes Normal, Ext Auditory Canal Nml, Pinna Normal, Other ENT Neck Exam: Negative: Supple, JVD, thyromegaly, +2 carotid pulse wo bruit, Lymphadenopathy, Other Chest Exam: Positive: Clear to auscultation, Normal air movement; Negative: Rales, Rhonchi, Wheezing, Diminished, Other Heart Exam: Positive: Rate Normal, Normal S1, Normal S2; Negative: Tachycardic, Bradycardic, Regular Rhythm, Irregular Rhythm, Gallops, Murmurs, Rubs, Other Telemetry: Positive: No significant arrhythmia Abdomen Exam: Positive: Normal bowel sounds, BS Hypoactive, Soft, Tenderness, Hepatospenomegaly, Mass, Hernia, Other (Large out put. Less protruding non bleeding bowel as compared to yesterday- about 4 cm) Male Exam: Negative: Normal Genital Exam, Lesions, Edema, Erythema, Tenderness, Discharge, Mass, Hernia, Normal Prostate, Normal Sphincter Tone Extremity Exam: Positive: Normal pulses; Negative: Clubbing, Cyanosis, Edema Skin Exam: Positive: Nl turgor and temperature Neuro Exam: Positive: Normal Gait, Normal Speech; Negative: Strength at 5/5 X4 ext, Normal Tone, Sensation Intact, Cranial Nerves 3-12 NL, Reflexes 2+, Other Psych Exam: Positive: Mood NL, Oriented x 3; Negative: Mental status NL, Anxiety, Memory Intact, Other Assessment /Plan Assessment This is a 59 year 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 Had persistent bacteremia after 48 hours despite appropriate IV antibiotics. Initially started on Zosyn for the past three days, a total of 10 doses of antibiotic. He was switched to cefazolin 1 gram every 8 hours. The pt's source of infection is most likely intraluminal line infection. The pt does not endorse any pulmonary, abdominal or urinary symptoms that would suggest a source of infection. Suspicion of line infection prompted removal of PICC line in left arm. Pt endorses no pain on site and the site is non-erythematous and appropriately dressed. Problems (1) Gram-negative sepsis Problem Text: Removal of PICC line was successful and wound is appropriately dressed. Repeat blood cultures were ordered and are pending. Pt was switched to PPN and is tolerating. Pt is set to receive antibiotics infusion in the morning, to have the new PICC line placed, and to be discharged by noon so he can make his 4 pm appointments at [facility] in [place]. Cefazolin to be switched on discharge tomorrow to Rocephin 2 g IV daily for 13 days- treatment set to end 12/22/19. Follow up with PCP: Dr Johnson Plan/VTE VTE Prophylaxis Ordered?: No VTE Exclusion Mechanical Proph: Other (pt very active around the room) VTE Exclusion Pharmacological: Thrombocytopenia Plan Anticipated Discharge: Home, Home With Services VS, I&O, 24H, Fishbone Vital Signs/I&O Vital Signs Date Time Temp Pulse Resp B/P (MAP) Pulse Ox O2 Delivery O2 Flow Rate FiO2 12/08/19 16:00 97.4 51 30 107/70 (82) 97 Room Air 12/08/19 15:46 6.0 94 I&O- Last 24 Hours up to 6 AM 12/08/19 06:00 Intake Total 29115 ml Output Total 4270 ml Balance 6894 ml Laboratory Data 24H LABS Laboratory Tests 2 12/08/19 09:42: Nucleated Red Blood Cells % (auto) 0.0, Neutrophils 75H, Band Neutrophils 1, Lym phocytes (Manual) 23, Monocytes (Manual) 1, Platelet Estimate MARKED DECREASE, Immature Platelet Fraction 12.0H 12/08/19 09:43: Anion Gap 4L, Glomerular Filtration Rate > 60.0, Calcium Level 9.2, Total Bilirubin 3.0H, Aspartate Amino Transf (AST/SGOT) 42H, Alanine Aminotransferase (ALT/SGPT) 77, Alkaline Phosphatase 175H, Total Protein 5.7L, Albumin 2.1L, Albumin/Globulin Ratio 0.58L CBC/BMP Laboratory Tests 12/08/19 09:42 12/08/19 09:43 Microbiology Microbiology 12/08/19 Blood Culture, Received Pending 12/08/19 Blood Culture, Received Pending 12/05/19 Blood Culture - Final, Complete Klebsiella Pneumoniae 12/05/19 Blood Culture - Preliminary, Resulted No Growth after 72 hours. All specime... 12/04/19 Blood Culture - Preliminary, Resulted No Growth after 72 hours. All specime... 12/04/19 Blood Culture - Preliminary, Resulted No Growth after 72 hours. All specime... 12/03/19 Blood Culture - Final, Complete Klebsiella Pneumoniae 12/03/19 Respiratory Virus Panel (PCR) ([facility]) - Final, Complete 12/03/19 Blood Culture - Preliminary, Resulted No Growth after 72 hours. All specime... GME ATTESTATION My faculty preceptor for this patient encounter was physically present during the encounter and was fully available. All aspects of the patient interview, examination, medical decision making process, and medical care plan development were reviewed and approved by the faculty preceptor. The faculty preceptor is aware and concurs with the plan as stated in the body of this note and will attest to such by his/her cosignature. QING PANTOJA OMS-IV Dec 08, 2019 17:39 Joseph Rodriguez MD Dec 11, 2019 16:35
[2019-12-08 20:00] VITALS: BP 123/77
[2019-12-08] MEDS: **NOTE PATIENT COMMENT** MISC XX SCH ×2 (21:00→21:08)
[2019-12-09] VITALS: BP 126/80
[2019-12-09] MEDS: POTASSIUM CHLORIDE INJ 30 MEQ in LR 1,000 ML IV SCH ×2 (01:35→06:44)
[2019-12-09] MEDS: oxyCODONE 5MG TAB PO PRN ×2 (03:49→10:14)
[2019-12-09 04:00] VITALS: BP 144/84
[2019-12-09 05:23] LABS: HEMATOCRIT 30.5 % (42.0-52.0); MEAN CORPUSCULAR HEMOGLOBIN 31.6 pg (27.0-33.0); MEAN CORPUSCULAR HGB CONC 32.8 g/dl (32.0-36.5); MEAN CORPUSCULAR VOLUME 96.5 fl (80.0-96.0); RED BLOOD COUNT 3.16 10^6/uL (4.30-6.10); WHITE BLOOD COUNT 8.4 10^3/uL (4.0-10.0)
[2019-12-09 05:24] LABS: PLATELET COUNT, AUTOMATED 66 10^3/uL (150-450)
[2019-12-09 05:55] LABS: ALT/SGPT 92 U/L (12-78); BLOOD UREA NITROGEN 20 MG/DL (7-18); CALCIUM LEVEL 8.9 MG/DL (8.5-10.1); CARBON DIOXIDE LEVEL 38 MEQ/L (21-32); CHLORIDE LEVEL 99 MEQ/L (98-107); CREATININE FOR GFR 0.75 MG/DL (0.70-1.30); GLOMERULAR FILTRATION RATE > 60.0 (>56); GLUCOSE, FASTING 107 MG/DL (70-100); POTASSIUM SERUM 4.3 MEQ/L (3.5-5.1); SODIUM LEVEL 142 MEQ/L (136-145); TOTAL PROTEIN 5.6 GM/DL (6.4-8.2)
[2019-12-09] MEDS: LOMOTIL 2.5MG/0.025MG TABLET PO SCH (06:00)
[2019-12-09] MEDS: AMINO AC/ELECTROLYTE/DEX/CALC 1,000 ML IV SCH (06:19)
[2019-12-09] MEDS ORDERED: HEPARIN 1,000 UNITS/ML 10ML VIAL (FOR RADIOLOGY& DIALYSIS ONLY) As Ordered ONE (07:37)
[2019-12-09] MEDS ORDERED: LIDOCAINE 1% MDV 20ML VIAL As Ordered ONE (07:45)
[2019-12-09 08:41] VITALS: BP 103/62
[2019-12-09] MEDS ORDERED: cefTRIAXone SOD 2 GM in D5W MINI-BAG PLUS 50 ML IV SCH (09:00)
[2019-12-09] MEDS ORDERED: CEFT2ADD INJ (09:38)
[2019-12-09] MEDS: predniSONE 10 MG TAB PO SCH (09:53)
[2019-12-09] MEDS ORDERED: POTA20EL PO (10:26)
--- NOTE | 2019-12-09 10:46 | DSES ---
DATE OF ADMISSION: 12/04/2019 DATE OF DISCHARGE: 12/09/2019 REASON FOR ADMISSION: Mr. Aly presented through the emergency department (ED) with complaint of fevers with chills, episode of emesis, no abdominal pain or change in the color of the output from his ileostomy. He is status post creation of an ileostomy because of Crohn's disease, has a history of allergy to Humira, which he had been using in the past, had been on prednisone 10 mg daily only as a maintenance, hopes to restart Entyvio once he has approval from his surgeon to go ahead with this new therapeutic to help control his Crohn's. Meanwhile, he developed the above-mentioned symptoms presented to the ED with findings of white count that was normal. Temperature initially normal, then he developed a 101.1 temperature at noon on December 05, 102.3 on December 07 has been afebrile since December 07 at 1856 hours, where he was 99.6. His white count was never elevated, platelet count was 68,000 on admission and dropped to a yvrose of 31,000 after he had been placed on Zosyn for antibiotic coverage for presumptive sepsis. This was changed to cefazolin with gradual improvement in his platelet count and then switched to ceftriaxone at the recommendation of infectious disease specialist in preparation for discharge. Blood culture was positive for Klebsiella pneumoniae on two occasions on December 03, day of admission, and December 05. Presumptive source since CT was negative and no other signs of infection could be identified was his PICC line. Therefore it was removed and he was recultured and so far preliminary results on the repeat culture are negative and new PICC line has been placed. Upon discharge plan will be resume his previous hyperalimentation with the TPN fluids. He will also resume fluid support with 4 liters of Lactated Ringer's daily. He was giving evidence of potassium depletion on admission with a K of 3.4. Therefore oral support with potassium or provision through IV will be needed. It is not likely that potassium tablets or capsules would be adequately or reliably absorbed considering his short gut syndrome, but liquid potassium could be administered as an alternative. We will see if IV potassium can be added to his IV fluids through his home IV supply company. If potassium supplementation, he is getting currently 30 mEq/l of Lactated Ringer's, cannot be provided, then we will need to see if we can support him adequately with oral repletion. He has been using heparin flushes routinely which is possibly contributing to his thrombocytopenia. Heparin-induced antibodies are currently pending. He tested negative for C. difficile, Methicillin-resistant Staphylococcus aureus (MRSA) was not detected in a screen collected here, and HIV was negative, hepatitis B core and IgM antibody was negative, hepatitis B surface antigen was negative, hepatitis A IgM antibody was negative. He has an appointment today at 3 o'clock in [place] with his surgeon, Dr. Dc for followup and he very much wants to make this appointment, therefore there is a bit of time pressure to get these arrangements accomplished in time for him to be able to depart. He will receive his next scheduled dose of ceftriaxone before departure. The only thing remaining is whether we need to give his potassium repletion orally or whether it can be given IV. He was only a little bit low on presentation and therefore adequate replacement orally should be feasible if he will accept a liquid form of replacement. His activity will be as tolerated, IV fluids as listed with TPN as specified by his surgeon prior to discharge. Diet as tolerated. He will continue prednisone 10 mg daily, continue loperamide 2 mg 2-4 mg q.i.d. p.r.n. diarrhea. He has been using oxycodone solution 5 mg q. 6 p.r.n. pain and this was prescribed before admission and recommend that be continued, and it is not clear that tablets would be adequately effective although he was getting 10 mg oxycodone tablets here in the hospital. He will followup with his primary care doctor in one week, with Dr. Dc today as scheduled. The ceftriaxone will be scheduled for a total of 14 days, 13 days from today, should finish on December 22. DISCHARGE DIAGNOSES: 1. Sepsis with Klebsiella pneumoniae. This organism was sensitive to all antibiotics except ampicillin. He will be discharged on ceftriaxone as noted. 2. Crohn's disease, short gut syndrome. High output related to the ileostomy. Consider GATTEX as a tool to reduce fluid losses. PROCEDURES: PICC line placement and removal of the presumably contaminated PICC line associated with this bacteremia. CONSULTATIONS: He was seen in consultation by: Dr. Rodriguez of infectious disease specialty. Dr. Gong of critical care. Dr. Roblero of general surgery. Dr. Bhandari of GI specialty service.
--- NOTE | 2019-12-09 18:21 | REP ---
Procedure: PICC line insertion with Laurel The procedure was performed under the direct supervision of Dr. Sumner. The risks and benefits of the procedure were explained to the patient and informed consent was obtained. The right brachial vein was localized using ultrasound guidance. The skin was prepped and draped in a sterile fashion. 1% lidocaine was used as a local anesthetic. Using ultrasound guidance the brachial vein was cannulated and a 0.018 guidewire was inserted and advanced to the SVC using fluoroscopic guidance. The needle was removed and a 5.5 Polish dilator and peel-away sheath was inserted over the guide wire. A 5.5 Polish dual lumen catheter was cut to length of 40 cm. The dilator was removed and the catheter was inserted over the guide wire with the tip ending in the SVC. The peel-away sheath was removed and the catheter was flushed with heparinized saline as per Hospital protocol. The catheter was affixed to the skin and a sterile dressing was applied. The patient tolerated the procedure well and there were no immediate complications. 0.1 minutes of fluoro time was utilized for this procedure. Electronically Signed by FLORIDALMA Coughlin 12/09/2019 04:10 P Electronically Signed by Oscar Sumner MD 12/09/2019 06:12 P
== END 2019-12-09 11:54 | disposition home or self-care (01) | DRG 206 ==
LOC: M ED 17:15 → M ED INP 12-04 00:41 → ENRESERVDT 12-04 01:56 → ENRESERVTM 12-04 01:56 → M ICU 12-04 02:40
PROVIDERS: ADMIT Internal Medicine; ATTEND Family Medicine
PROC: 02HV33Z Insertion of Infusion Device into Superior Vena Cava, Percutaneous Approach (ICD-10-PCS; principal; 2019-12-09 08:00)
DX: T82.7XXA Infection and inflammatory reaction due to other cardiac and vascular devices, implants and grafts, initial encounter (principal); A41.9 Sepsis, unspecified organism; E46 Unspecified protein-calorie malnutrition; I95.9 Hypotension, unspecified; D69.6 Thrombocytopenia, unspecified; K91.2 Postsurgical malabsorption, not elsewhere classified; E27.40 Unspecified adrenocortical insufficiency; K50.90 Crohn's disease, unspecified, without complications; K94.19 Other complications of enterostomy; B96.1 Klebsiella pneumoniae [K. pneumoniae] as the cause of diseases classified elsewhere; Z98.1 Arthrodesis status; Z87.891 Personal history of nicotine dependence; R74.0 Nonspecific elevation of levels of transaminase and lactic acid dehydrogenase [LDH]; G89.29 Other chronic pain; M54.5 Low back pain; Z90.49 Acquired absence of other specified parts of digestive tract; Z88.2 Allergy status to sulfonamides; Z79.899 Other long term (current) drug therapy; R00.1 Bradycardia, unspecified; E80.6 Other disorders of bilirubin metabolism; D53.9 Nutritional anemia, unspecified

== ENCOUNTER 2020-03-01 15:49 | Emergency (ER) | payer OTHER ==
[~2020-03-01] VITALS: Ht 175.3 cm; Wt 55.0 kg
[~2020-03-01 15:49] MED LIST: ANTI2TAB16; ANTI2TAB16 PO; CEFT2ADD INJ; LR10IV IV; OXYC1SOL3 PO; OXYC5SOL11; POTA20EL PO; PRED10TA2; PRED10TA2 PO; TPNINJ3 IV
[2020-03-01 15:50] VITALS: BP 103/65
== END 2020-03-01 16:47 | disposition left against medical advice (07) ==
LOC: M ED 15:49
DX: T82.594A Other mechanical complication of infusion catheter, initial encounter (principal); X58.XXXA Exposure to other specified factors, initial encounter; Y92.89 Other specified places as the place of occurrence of the external cause; J44.9 Chronic obstructive pulmonary disease, unspecified; K50.90 Crohn's disease, unspecified, without complications; Z88.1 Allergy status to other antibiotic agents; Z88.2 Allergy status to sulfonamides; Z88.8 Allergy status to other drugs, medicaments and biological substances; F17.210 Nicotine dependence, cigarettes, uncomplicated